=== PATIENT | female | born 1980 | race Caucasian/White ===

== ENCOUNTER 2016-11-20 20:41 | Emergency (ER) | payer BC ==
[~2016-11-20] VITALS: Ht 167.6 cm; Wt 64.6 kg
[~2016-11-20 20:41] MED LIST: LEVO.1 PO; ORTHTAB2 PO; SYNT75TA PO
[2016-11-20 20:50] VITALS: BP 111/86; PULSE 94; RESP 18; TEMP 98.8; O2SAT 100
[2016-11-20] MEDS ORDERED: LEVO.05 PO (20:59)
[2016-11-20] MEDS ORDERED: DEPO150I IM (20:59)
[2016-11-20] MEDS ORDERED: LEVO.075 PO (20:59)
--- NOTE | 2016-11-20 21:48 | PD ---
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 Patient states she fell on her knee 5 times yesterday after her hip popped out of place but it wasn't until falling on it today that she experienced significant pain. She does not remember how she fell but believes she may have fallen directly on her knee. She denies any other injuries. States since then she has had extreme pain in the left knee worse with any ambulation or range of motion. She has not taken anything for symptoms. Patient denies paresthesias. PFSH Past Medical History Medical other: Yes (Kaylen-Danlos syndrome ) Thyroid Disease: Yes (Hypo-) Tetanus Vaccination: < 5 Years Influenza Vaccination: No ?: Not LMP: On Depo Past Surgical History Gynecologic Surgery: Yes (Uteroid fibroids ) Tonsillectomy: Yes Other Surgery: Yes (R. HIP REPAIR, R. HAND, R. ROTATOR CUFF REPAIR ) Social History Alcohol Use: No Tobacco Use: Yes (1/2-1 PPD) Substance Use: No Allergies-Medications (Allergen,Severity, Reaction): Coded Allergies: Clindamycin (Verified Adverse Reaction, Severe, C-diff colitis , 11/20/16) Reported Meds & Prescriptions Reported Meds & Active Scripts Active Reported Depo-Provera Inj (Medroxyprogesterone Inj) 150 Mg/Ml Inj 150 Mg IM Q90D Synthroid (Levothyroxine Sodium) 75 Mcg Tab 75 Mcg PO EVERY OTHER DAY Synthroid (Levothyroxine Sodium) 50 Mcg Tab 50 Mcg PO EVERY OTHER DAY Review of Systems Except as stated in HPI: all other systems reviewed are Neg Physical Exam Narrative GENERAL: Well-nourished, well-developed female in no acute distress. Afebrile. Ambulatory. SKIN: Focused skin assessment warm/dry. Very mild ecchymosis of the left anterior knee. HEAD: Normocephalic. EYES: No scleral icterus. No injection or drainage. NECK: Supple, trachea midline. No JVD or lymphadenopathy. CARDIOVASCULAR: Regular rate and rhythm without murmurs, gallops, or rubs. RESPIRATORY: Breath sounds equal bilaterally. No accessory muscle use. EXTREMITY: Left knee is extremely tender to palpation especially over the kneecap. Patient has full extension and can flex to approximately 50. No obvious edema or effusion. 2+ dorsalis pedis pulse. Data Data Last Documented VS Vital Signs Date Time Temp Pulse Resp B/P Pulse Ox O2 Delivery O2 Flow Rate FiO2 11/20/16 20:50 98.8 94 18 111/86 100 Orders Knee, Complete (4vws) (11/20/16 ) [facility] Medical Decision Making Medical Screen Exam Complete: Yes Emergency Medical Condition: Yes Medical Record Reviewed: Yes Differential Diagnosis Sprain versus strain versus fracture versus contusion Narrative Course 36-year-old female presents to the emergency room for evaluation of left knee pain and swelling after falling on it 5 times yesterday and one time today. Patient has history of a kaylen danlos syndrome and her hip commonly pops out of place. She can pop it back into place but it caused her to fall. She denies paresthesias of the left lower extremity. It is neurovascularly intact with 2+ dorsalis pedis pulse. Patient can flex to approximately 50 she has full extension. Physical exam reveals no erythema, edema, obvious effusion. There is slight ecchymosis of the anterior knee. His extremity to palpation. X -ray shows no acute bony abnormality. Patient likely has contusion. She was placed in Tanvir wrap and told to follow up with primary care physician or return to the emergency room for worsening symptoms. She understands and agrees to plan. Diagnosis Primary Impression: Contusion of left knee Qualified Code: S80.02XA - Contusion of left knee, initial encounter Referrals: Primary Care Physician Patient Instructions: Contusion in Adults (ED), General Instructions Additional Instructions: Rest and drink plenty of fluids. Take ibuprofen with food as directed, as needed for pain. Apply ice to the affected area for 20 minutes at a time, as needed for pain and swelling. Follow-up with a primary care physician. Return to the emergency room for worsening symptoms. Disposition: 01 DISCHARGE HOME Condition: Stable Larisa Liu November 20, 2016 21:48
--- NOTE | 2016-11-20 22:04 | RADHPO ---
EXAM DATE/TIME: 11/20/2016 21:53 [facility] COMPARISON: No previous studies available for comparison. INDICATIONS : Dislocated left hip yesteday and fell; pain and bruising left knee. MEDICAL HISTORY : Kaylen-Danlos Syndrome SURGICAL HISTORY : None. ENCOUNTER: Initial ACUITY: 2 days PAIN SCORE: 9/10 LOCATION: Left knee FINDINGS: Four view examination of the left knee demonstrates no evidence of fracture or dislocation. Bony min eralization is normal. The articular surfaces are intact. The suprapatellar soft tissues have a nor mal configuration. CONCLUSION: No acute fracture. Anthony King MD on November 20, 2016 at 22:02 Board Certified Radiologist. This report was verified electronically.
== END 2016-11-20 22:15 | disposition home or self-care (01) ==
LOC: PHEFT 20:41
DX: S80.02XA Contusion of left knee, initial encounter (principal); Q79.6 Ehlers-Danlos syndromes; E03.9 Hypothyroidism, unspecified; Z79.899 Other long term (current) drug therapy; W19.XXXA Unspecified fall, initial encounter
CPT/HCPCS: 73564; 99283

== ENCOUNTER 2017-01-19 21:01 | Emergency (ER) | payer BC ==
[~2017-01-19] VITALS: Ht 167.6 cm; Wt 63.6 kg
[~2017-01-19 21:01] MED LIST changes: +DEPO150I IM; +LEVO.05 PO; +LEVO.075 PO; -LEVO.1 PO; -ORTHTAB2 PO; -SYNT75TA PO
[2017-01-19 21:03] VITALS: BP 122/83; PULSE 97; RESP 18; TEMP 97.9; O2SAT 98
[2017-01-19] MEDS ORDERED: ANALHC30T TOPICAL (22:17)
--- NOTE | 2017-01-19 22:23 | PD ---
HPI Chief Complaint: GI Complaint Time Seen by Provider: 22:14 Travel History International Travel<30 days: No Contact w/Intl Traveler<30days: No Traveled to known affect area: No History of Present Illness HPI 36-year-old female presents to the emergency department complaining of rectal pain. Patient with report of history of Kaylen-Danlos syndrome and rectal prolapse. Patient denies any rectal bleeding. Patient states that she has been followed by Dr. Cowart at [facility] who has written encouraged her to use stool softeners and fiber to her diet and try to reduce the rectal prolapse on her own as needed. Patient states this has been present since Sunday is painful and will not reduce and seems to be getting larger. Patient denies is currently on Depo-Provera shots and not sexually active. Patient does not report any abdominal pain nausea vomiting and no urinary symptoms. Patient denies any rectal bleeding. PFSH Past Medical History Narrative Medical Kaylen-Danlos syndrome, rectal prolapse, hypothyroidism; rotator cuff repair; tobacco use: Nursing notes reviewed Thyroid Disease: Yes (Hypo-) ?: Not LMP: DEPO Past Surgical History Gynecologic Surgery: Yes (Uteroid fibroids ) Tonsillectomy: Yes Other Surgery: Yes (R. HIP REPAIR, R. HAND, R. ROTATOR CUFF REPAIR ) Social History Alcohol Use: No Tobacco Use: Yes (12-1 PPD) Substance Use: No Allergies-Medications (Allergen,Severity, Reaction): Coded Allergies: Clindamycin (Verified Adverse Reaction, Severe, C-diff colitis , 01/19/17) Reported Meds & Prescriptions Reported Meds & Active Scripts Active Reported Depo-Provera Inj (Medroxyprogesterone Inj) 150 Mg/Ml Inj 150 Mg IM Q90D Synthroid (Levothyroxine Sodium) 75 Mcg Tab 75 Mcg PO EVERY OTHER DAY Synthroid (Levothyroxine Sodium) 50 Mcg Tab 50 Mcg PO EVERY OTHER DAY Review of Systems Except as stated in HPI: all other systems reviewed are Neg Physical Exam Narrative GENERAL: Well-developed well-nourished female in no acute distress no respiratory distress SKIN: Warm and dry. HEAD: Normocephalic. EYES: No scleral icterus. No injection or drainage. NECK: Supple, trachea midline. No JVD or lymphadenopathy. CARDIOVASCULAR: Regular rate and rhythm without murmurs, gallops, or rubs. RESPIRATORY: Breath sounds equal bilaterally. No accessory muscle use. GASTROINTESTINAL: Abdomen soft, non-tender, nondistended. Rectal exam: No fissure, no ecchymosis, no rectal prolapse, small prolapsed hemorrhoid readily reducible. Rectal vault no mass nontender no blood on exam glove unable to remove any stool that is just at tip of exam glove finger. Data Data Last Documented VS Vital Signs Date Time Temp Pulse Resp B/P Pulse Ox O2 Delivery O2 Flow Rate FiO2 01/19/17 21:03 97.9 97 18 122/83 98 MDM Medical Decision Making Medical Screen Exam Complete: Yes Emergency Medical Condition: Yes Medical Record Reviewed: Yes Differential Diagnosis Hemorrhoids, prolapsed hemorrhoid, thrombosed hemorrhoid, rectal prolapse Narrative Course Patient with readily reducible non-thrombosed hemorrhoid no evidence for rectal prolapse; patient will be given prescription for Analpram and encouraged to follow-up with colorectal surgeon Diagnosis Primary Impression: Hemorrhoid prolapse Referrals: Colon Rectal Specialist call for appointment Local colorectal surgeons include Dr Cassidy Mcgregor, Dr Davis, Dr Hutchinson; call person Dr Cassidy Mcgregor Patient Instructions: General Instructions Additional Instructions: Apply Analpram topically 4 times daily to decrease swelling discomfort and itching Frequent sitz baths as needed Add MiraLAX to bowel regimen Add fiber to dietary intake Increase fluid hydration Follow-up with colorectal surgeon as needed Med/Other Pt SpecificInfo: Prescription(s) given Scripts Hydrocortisone-Pramoxine Topical (Analpram Hc Topical)2.5-1% Cream1 Applic TOPICAL Q6HR PRN (ITCHING) #1 TUBE Prov:Danielle Christensen MD 01/19/17 Disposition: 01 DISCHARGE HOME Condition: Stable Danielle Christensen MD Jan 19, 2017 22:23
[2017-01-19 22:26] VITALS: BP 125/75
== END 2017-01-19 22:26 | disposition home or self-care (01) ==
LOC: PHED 21:01
DX: K64.8 Other hemorrhoids (principal); E03.9 Hypothyroidism, unspecified; Q79.6 Ehlers-Danlos syndromes; K62.3 Rectal prolapse; F17.210 Nicotine dependence, cigarettes, uncomplicated
CPT/HCPCS: 99284

== ENCOUNTER 2017-02-18 17:10 | Emergency (ER) | payer BC ==
[~2017-02-18] VITALS: Ht 167.6 cm; Wt 64.0 kg
[~2017-02-18 17:10] MED LIST changes: +ANALHC30T TOPICAL
[2017-02-18 17:14] VITALS: BP 122/63; PULSE 90; RESP 16; TEMP 98.3; O2SAT 100
[2017-02-18] MEDS ORDERED: HYDR-4107 PO (17:26)
--- NOTE | 2017-02-18 18:00 | PD ---
HPI Chief Complaint: Musculoskeletal Complaint Time Seen by Provider: 17:45 Travel History International Travel<30 days: No Contact w/Intl Traveler<30days: No Traveled to known affect area: No History of Present Illness HPI 36-year-old female presents to the emergency room for evaluation of bilateral distal finger paresthesias that started suddenly about 2 hours ago. Symptoms aren't off 10 fingers. She states they have to worsen the thumbs. They occur from the tips of the fingers down to about the middle phalanx. Denies significant pain. Patient states she was not doing anything when they started. She has associated left-sided neck pain. She denies history of alcohol abuse , diabetes, or excessive use of her hands. Denies chronic medical conditions or daily medications. PFSH Past Medical History Autoimmune Disease: Yes (Kaylen-Danlos syndrome ) Diminished Hearing: No Genitourinary: Yes (fibroids removed) Immunizations Current: Yes Thyroid Disease: Yes (Hypo-) Tetanus Vaccination: < 5 Years Influenza Vaccination: No ?: Not LMP: DEPO Past Surgical History Gynecologic Surgery: Yes (Uteroid fibroids ) Tonsillectomy: Yes Other Surgery: Yes (R. HIP REPAIR, R. HAND, R. ROTATOR CUFF REPAIR ) Social History Alcohol Use: No Tobacco Use: Yes (1/2-1 PPD) Substance Use: No Allergies-Medications (Allergen,Severity, Reaction): Coded Allergies: Clindamycin (Verified Adverse Reaction, Severe, C-diff colitis , 02/18/17) Reported Meds & Prescriptions Reported Meds & Active Scripts Active Reported Hydrocodone-Acetaminophen 5-300 Mg Tab 1 Tab PO Q4H PRN Depo-Provera Inj (Medroxyprogesterone Inj) 150 Mg/Ml Inj 150 Mg IM Q90D Synthroid (Levothyroxine Sodium) 75 Mcg Tab 75 Mcg PO EVERY OTHER DAY Synthroid (Levothyroxine Sodium) 50 Mcg Tab 50 Mcg PO EVERY OTHER DAY Review of Systems Except as stated in HPI: all other systems reviewed are Neg Physical Exam Narrative GENERAL: Well-nourished, well-developed female in no acute distress. Afebrile. Ambulatory. SKIN: Focused skin assessment warm/dry. Less than 2 second capillary refill distally in bilateral hands. HEAD: Normocephalic. EYES: No scleral icterus. No injection or drainage. NECK: Supple, trachea midline. No JVD or lymphadenopathy. CARDIOVASCULAR: Regular rate and rhythm without murmurs, gallops, or rubs. RESPIRATORY: Breath sounds equal bilaterally. No accessory muscle use. EXTREMITY: Bilateral hands nontender to palpation. Full range of motion in all joints. No joint swelling/injury. Normal opposition of thumb. Distal extremity neurovascularly intact. Patient has mildly decreased sensation in the distal phalanges. Data Data Last Documented VS Vital Signs Date Time Temp Pulse Resp B/P Pulse Ox O2 Delivery O2 Flow Rate FiO2 02/18/17 17:14 98.3 90 16 122/63 100 MDM Medical Decision Making Medical Screen Exam Complete: Yes Emergency Medical Condition: Yes Medical Record Reviewed: Yes Differential Diagnosis Peripheral neuropathy, peripheral vascular disease, carpal tunnel, vitamin deficiency, diabetes Narrative Course 36-year-old healthy female presents to the emergency room for evaluation of numbness and tingling in the bilateral fingertips that started just prior to arrival. No history of diabetes, HIV, peripheral vascular disease, or alcoholism. Physical exam is unremarkable. Patient has full range of motion of bilateral upper extremities. Less than 2 second capillary refill distally. When poked with a sharp needle she flinched 1 of 3 times. I suspect B12 vitamin deficiency. I spoke to my attending physician, Dr. Owens, who recommends follow-up with her primary care physician for outpatient workup or referral to neurologist. Told to return to the emergency home for worsening symptoms. She understands and agrees to plan. Diagnosis Primary Impression: Peripheral neuropathy Qualified Code: G62.9 - Peripheral polyneuropathy Referrals: Primary Care Physician Patient Instructions: General Instructions, Peripheral Neuropathy (ED) Additional Instructions: Rest and drink plenty of fluids. Follow-up with a primary care physician for outpatient testing and referral to neurologist if symptoms persist. Return to the emergency room for worsening symptoms. Disposition: DISCHARGE HOME Condition: Stable Larisa Liu Feb 18, 2017 18:00
== END 2017-02-18 18:08 | disposition home or self-care (01) ==
LOC: PHEFT 17:10
DX: G62.9 Polyneuropathy, unspecified (principal); M54.2 Cervicalgia; E07.9 Disorder of thyroid, unspecified; F17.200 Nicotine dependence, unspecified, uncomplicated; Z86.2 Personal history of diseases of the blood and blood-forming organs and certain disorders involving the immune mechanism
CPT/HCPCS: 99281

== ENCOUNTER 2017-04-28 20:10 | Observation (INO) | payer SELFPAY ==
[~2017-04-28 20:10] MED LIST changes: -ANALHC30T TOPICAL; +HYDR-4107 PO
[2017-04-28 20:12] VITALS: BP 114/71; PULSE 99; RESP 15; TEMP 98.2; O2SAT 97
[2017-04-28] MEDS ORDERED: MORPHINE SULFATE 4 MG/ML INJ IV PUSH ONE (20:45)
[2017-04-28] MEDS ORDERED: ONDANSETRON HCL 4 MG/2 ML VIAL IV PUSH ONE (20:45)
[2017-04-28] MEDS ORDERED: SODIUM CHLOR 0.9% 1000 ML INJ 1,000 ML IV SCH (20:45)
[2017-04-28] MEDS ORDERED: KETOROLAC TROMETHAMINE 30 MG/ML (IVP) VIAL IV PUSH ONE (20:45)
[2017-04-28 20:51] VITALS: BP 126/76; PULSE 109; RESP 18; O2SAT 97
[2017-04-28] MEDS ORDERED: CEPH-460 PO (20:51)
[2017-04-28 21:04] LABS: AUTOMATED NEUTROPHIL # 10.2 TH/MM3 (1.8-7.7); BASOPHIL # 0.1 TH/MM3 (0-0.2); BASOPHIL % 0.6 % (0.0-2.0); EOSINOPHIL # 0.5 TH/MM3 (0-0.4); EOSINOPHIL % 3.6 % (0.0-4.0); HEMATOCRIT 35.4 % (35.0-46.0); HEMO FLAGS DIFF FINAL; LYMPH % 17.2 % (9.0-44.0); LYMPHOCYTE # 2.4 TH/MM3 (1.0-4.8); MEAN CELL VOLUME 84.8 FL (80.0-100.0); MEAN CORPUSCULAR HEMOGLOBIN 28.1 PG (27.0-34.0); MEAN CORPUSCULAR HGB CONC 33.2 % (32.0-36.0); MONO % 4.7 % (0.0-8.0); NEUT % 73.9 % (16.0-70.0); PLATELET COUNT 263 TH/MM3 (150-450); RED BLOOD COUNT 4.18 MIL/MM3 (4.00-5.30); RED CELL DISTRIBUTION WIDTH 14.6 % (11.6-17.2); WHITE BLOOD COUNT 13.8 TH/MM3 (4.0-11.0)
[2017-04-28 21:15] LABS: BLOOD, URINE SMALL (NEG); COMMENT (UR) CULTURE INDICATED; CULTURE IF INDICATED CULTURE INDICATED; GLUCOSE,URINE NEG (NEG); KETONE, URINE NEG (NEG); NITRITE,URINE POS (NEG); PH, URINE 5.5 (5.0-8.5)
--- NOTE | 2017-04-28 21:15 | PD ---
HPI Chief Complaint: Complaint Time Seen by Provider: 20:29 Travel History International Travel<30 days: No Contact w/Intl Traveler<30days: No Traveled to known affect area: No History of Present Illness HPI 36-year-old female that presents to the ED for evaluation of possible UTI. Per patient she's had urinary like symptoms since the beginning of the month. Per patient she has dysuria, polyuria as well as urinary incontinence and back pain. Per patient she's been seen not too different urgent cares as well as [facility]. Last time she was seen her for hospital she had imaging and labs that were sutured unremarkable workup for possible UTI. She has taken Cipro, Macrobid, Keflex and amoxicillin. Patient just started on the Keflex and amoxicillin on Sunday. Patient denies any chest pain or shortness of breath. She states that she's had high fevers of 104. She states the incontinence has been ongoing since the start of the symptoms but it seems to becoming worse and worse. She states that her father was recently admitted and had to have a tube to drain his kidney. She denies any kidney history. She does have a history of chronic pain and takes pain medication as well as chronic anxiety. She denies any history of IV drug abuse. She's been taking her pain medication as well as OTC meds with minimal relief. She also takes Azo at this time. Pain per patient is 10 out of 10 on the back. She denies any numbness, tilling, weakness. She has any bowel movement issues. No vaginal discharge. PFSH Past Medical History Autoimmune Disease: Yes (Kaylen-Danlos syndrome ) Diminished Hearing: No Genitourinary: Yes (fibroids removed) Immunizations Current: Yes Thyroid Disease: Yes (Hypo-) Tetanus Vaccination: < 5 Years Influenza Vaccination: No ?: Not Past Surgical History Gynecologic Surgery: Yes (Uteroid fibroids ) Tonsillectomy: Yes Other Surgery: Yes (R. HIP REPAIR, R. HAND, R. ROTATOR CUFF REPAIR ) Social History Alcohol Use: No Tobacco Use: Yes (1/2-1 PPD) Substance Use: No Allergies-Medications (Allergen,Severity, Reaction): Coded Allergies: clindamycin (Unverified Adverse Reaction, Severe, C-diff colitis , 02/20/17 ) Reported Meds & Prescriptions Reported Meds & Active Scripts Active Reported Keflex (Cephalexin) 500 Mg Capsule 500 Mg PO TID Depo-Provera Inj (Medroxyprogesterone Inj) 150 Mg/Ml Inj 150 Mg IM Q90D Synthroid (Levothyroxine Sodium) 75 Mcg Tab 75 Mcg PO EVERY OTHER DAY Synthroid (Levothyroxine Sodium) 50 Mcg Tab 50 Mcg PO EVERY OTHER DAY Review of Systems Except as stated in HPI: all other systems reviewed are Neg Physical Exam Narrative GENERAL: SKIN: Warm and dry. HEAD: Atraumatic. Normocephalic. EYES: Pupils equal and round. No scleral icterus. No injection or drainage. ENT: No nasal bleeding or discharge. Mucous membranes pink and moist. Tongue is midline. No uvula deviation. NECK: Trachea midline. No JVD. CARDIOVASCULAR: Regular rate and rhythm. No murmurs, S3, S4. RESPIRATORY: No accessory muscle use. Clear to auscultation. Breath sounds equal bilaterally. GASTROINTESTINAL: Abdomen soft, non-tender, nondistended. Hepatic and splenic margins not palpable. MUSCULOSKELETAL: Extremities without clubbing, cyanosis, or edema. No obvious deformities. Full range of motion of the upper and lower extremities bilaterally. Appears to be neurovascularly intact in the upper and lower extremities. Sensation intact. 2+ pulses bilaterally. No tenderness to palpation in the musculature of the lower back. No obvious lumbar, thoracic, cervical spine deformity or tenderness. NEUROLOGICAL: Awake and alert. No obvious cranial nerve deficits. Motor grossly within normal limits. Five out of 5 muscle strength in the arms and legs. Normal speech. PSYCHIATRIC: Appropriate mood and affect; insight and judgment normal. Data Data Last Documented VS Vital Signs Date Time Temp Pulse Resp B/P (MAP) Pulse Ox O2 Delivery O2 Flow Rate FiO2 04/28/17 20:51 109 18 126/76 (93) 97 Room Air 04/28/17 20:12 98.2 Orders Orders Complete Blood Count With Diff (04/28/17 20:31) Basic Metabolic Panel (Bmp) (04/28/17 20:31) Urinalysis - C+S If Indicated (04/28/17 20:31) Magnesium (Mg) (04/28/17 20:31) Ed Urine Pregnancytest Poc (04/28/17 20:31) Lactic Acid (04/28/17 20:31) Mri L Spine W&W/O Contrast (04/28/17 ) Ct Abd/Pel W/O Iv Contrast (04/28/17 ) Ketorolac Inj (Toradol Inj) (04/28/17 20:45) Morphine Inj (Morphine Inj) (04/28/17 20:45) Ondansetron Inj (Zofran Inj) (04/28/17 20:45) Sodium Chlor 0.9% 1000 Ml Inj (Ns 1000 M (04/28/17 20:45) Urine Culture (04/28/17 20:30) Blood Culture (04/28/17 21:20) Gadodiamide Pf Inj (Omniscan Pf Inj) (04/28/17 22:00) Piperacil-Tazo 3.375 Gm Premix (Zosyn 3. (04/28/17 23:00) Admit Order (Ed Use Only) (04/28/17 23:02) Labs Laboratory Tests Test 04/28/17 20:30 04/28/17 20:40 Urine Color DARK-BROWN Urine Turbidity CLEAR Urine pH 5.5 Urine Specific [place] 1.012 Urine Protein NEG mg/dL Urine Glucose (UA) NEG mg/dL Urine Ketones NEG mg/dL Urine Occult Blood SMALL Urine Nitrite POS Urine Bilirubin NEG Urine Urobilinogen 2.0 MG/DL Urine Leukocyte Esterase NEG Urine RBC 7 /hpf Urine WBC 1 /hpf Microscopic Urinalysis Comment CULTURE INDICATED White Blood Count 13.8 TH/MM3 Red Blood Count 4.18 MIL/MM3 Hemoglobin 11.8 GM/DL Hematocrit 35.4 % Mean Corpuscular Volume 84.8 FL Mean Corpuscular Hemoglobin 28.1 PG Mean Corpuscular Hemoglobin Concent 33.2 % Red Cell Distribution Width 14.6 % Platelet Count 263 TH/MM3 Mean Platelet Volume 7.3 FL Neutrophils (%) (Auto) 73.9 % Lymphocytes (%) (Auto) 17.2 % Monocytes (%) (Auto) 4.7 % Eosinophils (%) (Auto) 3.6 % Basophils (%) (Auto) 0.6 % Neutrophils # (Auto) 10.2 TH/MM3 Lymphocytes # (Auto) 2.4 TH/MM3 Monocytes # (Auto) 0.6 TH/MM3 Eosinophils # (Auto) 0.5 TH/MM3 Basophils # (Auto) 0.1 TH/MM3 CBC Comment DIFF FINAL Differential Comment Blood Urea Nitrogen 11 MG/DL Creatinine 0.63 MG/DL Random Glucose 73 MG/DL Calcium Level 8.8 MG/DL Magnesium Level 2.1 MG/DL Sodium Level 140 MEQ/L Potassium Level 3.5 MEQ/L Chloride Level 107 MEQ/L Carbon Dioxide Level 24.9 MEQ/L Anion Gap 8 MEQ/L Estimat Glomerular Filtration Rate 108 ML/MIN Lactic Acid Level 1.2 mmol/L MDM Medical Decision Making Medical Screen Exam Complete: Yes Emergency Medical Condition: Yes Medical Record Reviewed: Yes Interpretation(s) CBC & BMP Diagram 04/28/17 20:40 Calcium Level 8.8, Magnesium Level 2.1 Last Impressions Lumbar Spine MRI 04/28/17 0000 Signed Impressions: Service Date/Time: Friday, April 28, 2017 21:41 - CONCLUSION: 1. At L4-5 there is a small annular tear and disc protrusion without canal or foraminal stenosis. Remainder of lumbar spine within normal limits for age. Normal alignment. Conus medullaris is intact. No abnormal enhancement. James Frazier MD Abdomen/Pelvis CT 04/28/17 0000 Signed Impressions: Service Date/Time: Friday, April 28, 2017 21:13 - CONCLUSION: 1. No acute findings. Negative for renal calculi, obstructive uropathy or evidence for inflammatory changes in the abdomen or pelvis. 2. Mild constipation. Trace free fluid in the pelvis. James Frazier MD UA shows nitrates, blood, RBCs lactic acid WNL Differential Diagnosis UTI versus polynephritis versus fellow patient treatment versus urinary incontinence versus neurological deficit versus abscess of the spine Narrative Course 36-year-old female that presents to the ED for evaluation of urinary symptoms. Patient was properly examined and was found to have signs and symptoms fit and appears to be urinary infection. There is some concern for neurological deficits as patient complains of worsening incontinence with inability to fall her urine which is new for her since starting with the symptoms. She denies any IV drug abuse but she does have some tenderness to palpation on the back. There is concern for infection. This time I recommend labs and imaging. MRI was ordered as well to rule out any sign of abscess or infection to the back. Patient was started on IV pain medications and fluids. Labs and imaging showed infection and possible UTI. MRIs and imaging were unremarkable other than for mild constipation. Case was discussed with my attending Dr. Christensen who evaluated the patient with me and recommends admission for FOR further evaluation and treatment of her symptoms. She still somewhat incontinent what appears to be neurovascularly intact. MRI again was negative for abscess or neurological deficit. My attending Dr. Christensen agrees with this plan. This was discussed with the patient who is in agreement with plan. Patient does meet sepsis criteria by having to elevated heart rates about 90 as well as elevated white blood cell count and infectious source. Residents were paged and they agreed to admission. Sepsis Criteria SIRS Criteria (2 or more): Heart rate over 90, WBC > 52867, < 4000 or > 10% bands Sepsis Criteria (SIRS+source): Infect source susp/known Criteria Outcome: Meets sepsis criteria Diagnosis Primary Impression: UTI (urinary tract infection) Qualified Codes: N30.01 - Acute cystitis with hematuria Additional Impressions: Urinary incontinence in female Constipation Qualified Codes: K59.00 - Constipation, unspecified Sepsis Qualified Codes: A41.9 - Sepsis, unspecified organism Admitting Information Admitting Physician Requests: Admit Agustin Linder Apr 28, 2017 21:14
[2017-04-28 21:16] LABS: URINE COLOR DARK-BROWN (YELLW/STRAW)
[2017-04-28 21:21] LABS: BICARBONATE 24.9 MEQ/L (21.0-32.0); MAGNESIUM 2.1 MG/DL (1.5-2.5); POTASSIUM 3.5 MEQ/L (3.5-5.1)
[2017-04-28] MEDS ORDERED: GADODIAMIDE PF 287 MG/ML 10 ML VIAL (for RAD MRI) IVCONTRAST ONE (22:00)
--- NOTE | 2017-04-28 22:01 | RADRPT ---
EXAM DATE/TIME: 04/28/2017 21:13 [facility] COMPARISON: No previous studies available for comparison. INDICATIONS : Right flank pain; possible urinary tract infection. ORAL CONTRAST: No oral contrast ingested. RADIATION DOSE: 5.57 CTDIvol (mGy) MEDICAL HISTORY : None SURGICAL HISTORY : None. ENCOUNTER: Initial ACUITY: 2 days PAIN SCALE: 8/10 LOCATION: Right flank TECHNIQUE: Volumetric scanning of the abdomen and pelvis was performed. Using automated exposure control and ad justment of the mA and/or kV according to patient size, radiation dose was kept as low as reasonably achievable to obtain optimal diagnostic quality images. DICOM format image data is available electro nically for review and comparison. FINDINGS: Visualized lung bases are clear. No acute findings in the liver, spleen, adrenals, kidneys or pancrea s. There is mild constipation. Small amount free fluid in the pelvis. No free air. No acute bony abnormalities. CONCLUSION: 1. No acute findings. Negative for renal calculi, obstructive uropathy or evidence for inflammatory c hanges in the abdomen or pelvis. 2. Mild constipation. Trace free fluid in the pelvis. James Frazier MD on April 28, 2017 at 21:57 Board Certified Radiologist. This report was verified electronically.
--- NOTE | 2017-04-28 22:38 | RADRPT ---
EXAM DATE/TIME: 04/28/2017 21:41 [place] COMPARISON: No previous studies available for comparison. INDICATIONS : Pain. CONTRAST: 10 cc Omniscan (gadodiamide) IV MEDICAL HISTORY : Kaylen-danlos syndrome. SURGICAL HISTORY : Orthopedic. ENCOUNTER: Initial ACUITY: 1 day PAIN SCORE: 3/10 LOCATION: [facility] TECHNIQUE: Multiplanar multisequence MRI of the lumbar spine was performed with and without contrast. FINDINGS: The most caudal appearing lumbar vertebra is numbered as L5. VERTEBRAE: Homogeneous signal. Normal alignment. CONUS: Normal level and configuration. POST CONTRAST: No abnormal areas of contrast enhancement are seen. T12-L1: The thecal sac has a normal diameter. No evidence of disc bulge or protrusion. The neural foramina are patent bilaterally. L1-L2: The thecal sac has a normal diameter. No evidence of disc bulge or protrusion. The neural foramina are patent bilaterally. L2-L3: The thecal sac has a normal diameter. No evidence of disc bulge or protrusion. The neural foramina are patent bilaterally. L3-L4: The thecal sac has a normal diameter. No evidence of disc bulge or protrusion. The neural foramina are patent bilaterally. L4-L5: There is a small annular tear and mild disc protrusion. The canal of foraminal stenosis. L5-S1: The thecal sac has a normal diameter. No evidence of disc bulge or protrusion. The neural foramina are patent bilaterally. CONCLUSION: 1. At L4-5 there is a small annular tear and disc protrusion without canal or foraminal stenosis. Rem ainder of lumbar spine within normal limits for age. Normal alignment. Conus medullaris is intact. No abnormal enhancement. James Frazier MD on April 28, 2017 at 22:34 Board Certified Radiologist. This report was verified electronically.
[2017-04-28] MEDS ORDERED: PIPERACIL-TAZO 3.375 GM PREMIX 50 ML IV ONE (23:00)
--- NOTE | 2017-04-28 23:12 | HHI.HP ---
[facility] Service Family Medicine Primary Care Physician Manas Valenzuela D.O. 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 symptoms started on April 18. At onset of symptoms, patient reports an inability to urinate despite a full bladder. However since then, she has been experiencing incontinence. She states that bladder itself is painful. Patient started taking Cipro the following Sunday. On Sunday, she visited an urgent care clinic where she was diagnosed with a UTI and prescribed Macrobid as well as Pyridium. On Sunday, she called the same urgent care clinic because medication had provided no/little relief; medication was switched to Keflex. On Sunday, patient visited ED at [facility], where a urine analysis and CT of pelvis were performed; per patient, UA showed white blood cells and imaging was normal. She was discharged from ED and started on Bactrim. Patient never filled Bactrim prescription because she says that Bactrim has not worked for her in the past. Symptoms continued to worsen. Yesterday, patient reports temperature of 104 degrees F and dizziness. She continues with fevers and chills today. Patient denies increased urinary frequency or urgency. Patient denies burning sensation with urination. She experiences bladder pain with and after urination ; pain lasts for approximately 5 minutes. She describes pain as 10 out of 10, sharp and throbbing. Patient also reports low back pain bilaterally. She describes this pain as a 9/10, sharp, continuous pain that improves with walking. Patient denies abdominal pain but has had little appetite. Patient admits to nausea but denies vomiting. Patient denies diarrhea and constipation; last bowel movement was 2 days ago. Patient denies vaginal discharge. Patient has had recurrent UTIs but denies prior kidney infection. Of note, patient started receiving Depo shots in July 2016; last Depo shot was April 13, 2017. Patient has lost 60 pounds since July; weight loss is unintentional. Per patient, director of infection prevention started workup to investigate weight loss. Review of Systems Constitutional: COMPLAINS OF: Diaphoretic episodes (with fever), Fatigue, Fever (104 degrees F at home ), Weight loss (unintentional; 60 pounds since July), Chills, Dizziness, Change in appetite (loss of appetite ) Endocrine: COMPLAINS OF: Abnorml menstrual pattern (no menstrual periods since July) Eyes: DENIES: Blurred vision, Eye pain, Vision loss, Double Vision Ears, nose, mouth, throat: DENIES: Hearing loss, Nasal discharge, Throat pain, Ear Pain, Running Nose, Sinus Pain Respiratory: COMPLAINS OF: Cough (started today ), DENIES: Wheezing, Sputum production, Shortness of breath Cardiovascular: DENIES: Chest pain, Palpitations Gastrointestinal: COMPLAINS OF: Abdominal pain (low, center), Nausea, DENIES: Black stools, Bloody stools, Constipation, Diarrhea, Vomiting Genitourinary: COMPLAINS OF: Abnormal vaginal bleeding (no menstrual periods since July), Urinary incontinence (repeated episodes), Dysuria (bladder pain with urination), DENIES: Urinary frequency, Urgency, Hematuria, Vaginal discharge Musculoskeletal: COMPLAINS OF: Muscle aches (chronic), Back pain (bilaterally) Integumentary: DENIES: Abnormal pigmentation, Rash Hematologic/lymphatic: COMPLAINS OF: Bruising (Easily ) Neurologic: COMPLAINS OF: Tremor (baseline), DENIES: Headache, Seizures Psychiatric: COMPLAINS OF: Anxiety, DENIES: Confusion, Depression Other For further details see HPI Past Family Social History Past Medical History Kaylen-Danlos syndrome - diagnosed 7 years ago Uterine fibroids x multiple Hypothyroidism Peripheral neuropathy - right lower extremity Pelvic floor dysfunction Past Surgical History Tonsillectomy - 2004 Right rotator cuff repair - 2004 Right hip repair - torn ligaments - January 2010 Right hand - torn ligaments - multiple - October 2011 and June 2012 "Fluid taking out of spine" - 2013 Uterine fibroids removed - 2016; all but one fibroid removed Reported Medications Reported Meds & Active Scripts Active Reported Keflex (Cephalexin) 500 Mg Capsule 500 Mg PO TID Pyridium (Phenazopyridine) 200 Mg Tab 200 Mg PO TID. Depo-Provera Inj (Medroxyprogesterone Inj) 150 Mg/Ml Inj 150 Mg IM Q90D Synthroid (Levothyroxine Sodium) 75 Mcg Tab 75 Mcg PO EVERY OTHER DAY - even days Synthroid (Levothyroxine Sodium) 50 Mcg Tab 50 Mcg PO EVERY OTHER DAY - odd days Allergies: Coded Allergies: clindamycin (Unverified Adverse Reaction, Severe, C-diff colitis , ) Family History Dad - kidney "stents" and "tube" placed this year- creatine high; kidney stone Sister - Bipolar disorder Social History Lives with boyfriend. She states that she has no family or friends in town. Alcohol: Denies Tobacco: 1/2 to 1 pack per day Drugs: Denies Physical Exam Vital Signs Vital Signs Date Time Temp Pulse Resp B/P (MAP) Pulse Ox O2 Delivery O2 Flow Rate FiO2 04/28/17 20:51 109 18 126/76 (93) 97 Room Air 04/28/17 20:12 98.2 99 15 114/71 (85) 97 Room Air Physical Exam GENERAL: This is a well-developed but thin patient, in some distress. SKIN: Warm and diaphoretic. HEAD: Atraumatic. Normocephalic. EYES: Extraocular motions grossly intact. No scleral icterus. No injection or drainage. ENT: Nose without bleeding, purulent drainage or septal hematoma. Mucous membranes moist. Airway patent. NECK: Trachea midline. No JVD. CARDIOVASCULAR: Regular rate and rhythm without murmurs, gallops, or rubs. RESPIRATORY: Scattered wheezes heard on auscultation. Breath sounds equal bilaterally. No wheezes, rales, or rhonchi. GASTROINTESTINAL: Abdomen soft, nondistended. Tender over periumbilical area and lower abdomen. No hepato-splenomegaly, or palpable masses. Some guarding. MUSCULOSKELETAL: Extremities without clubbing, cyanosis, or edema. No joint tenderness, effusion, or edema noted. No calf tenderness. NEUROLOGICAL: Awake and alert. Cranial nerves II through XII intact. Motor and sensory grossly within normal limits. Five out of 5 muscle strength in all muscle groups. Normal speech. PSYCHIATRIC: Patient tearful and anxious. She insists on private telephone conversation outside hospital. Patient also requests permission to go home to sweet pickle maker clothing and toiletries. Laboratory Laboratory Tests Test 04/28/17 20:30 04/28/17 20:40 Urine Color DARK-BROWN Urine Turbidity CLEAR Urine pH 5.5 Urine Specific [place] 1.012 Urine Protein NEG Urine Glucose (UA) NEG Urine Ketones NEG Urine Occult Blood SMALL Urine Nitrite POS Urine Bilirubin NEG Urine Urobilinogen 2.0 Urine Leukocyte Esterase NEG Urine RBC 7 Urine WBC 1 Microscopic Urinalysis Comment CULTURE INDICATED White Blood Count 13.8 Red Blood Count 4.18 Hemoglobin 11.8 Hematocrit 35.4 Mean Corpuscular Volume 84.8 Mean Corpuscular Hemoglobin 28.1 Mean Corpuscular Hemoglobin Concent 33.2 Red Cell Distribution Width 14.6 Platelet Count 263 Mean Platelet Volume 7.3 Neutrophils (%) (Auto) 73.9 Lymphocytes (%) (Auto) 17.2 Monocytes (%) (Auto) 4.7 Eosinophils (%) (Auto) 3.6 Basophils (%) (Auto) 0.6 Neutrophils # (Auto) 10.2 Lymphocytes # (Auto) 2.4 Monocytes # (Auto) 0.6 Eosinophils # (Auto) 0.5 Basophils # (Auto) 0.1 CBC Comment DIFF FINAL Differential Comment Blood Urea Nitrogen 11 Creatinine 0.63 Random Glucose 73 Calcium Level 8.8 Magnesium Level 2.1 Sodium Level 140 Potassium Level 3.5 Chloride Level 107 Carbon Dioxide Level 24.9 Anion Gap 8 Estimat Glomerular Filtration Rate 108 Lactic Acid Level 1.2 Date/Time Source Procedure Growth Status 04/28/17 21:35 Blood Peripheral Aerobic Blood Culture Pending Received 04/28/17 21:35 Blood Peripheral Anaerobic Blood Culture Pending Received 04/28/17 20:30 Urine Clean Catch Urine Culture Pending Received Result Diagram: 04/28/17203904/28/172039 Imaging Last Impressions Lumbar Spine MRI 04/28/17 0000 Signed Impressions: Service Date/Time: Friday, April 28, 2017 21:41 - CONCLUSION: 1. At L4-5 there is a small annular tear and disc protrusion without canal or foraminal stenosis. Remainder of lumbar spine within normal limits for age. Normal alignment. Conus medullaris is intact. No abnormal enhancement. James Frazier MD Abdomen/Pelvis CT 04/28/17 0000 Signed Impressions: Service Date/Time: Friday, April 28, 2017 21:13 - CONCLUSION: 1. No acute findings. Negative for renal calculi, obstructive uropathy or evidence for inflammatory changes in the abdomen or pelvis. 2. Mild constipation. Trace free fluid in the pelvis. James Frazier MD Septic Shock Reassessment Heart: Other (tachycardic) Lungs: Clear Skin: Warm, Moist Caprini VTE Risk Assessment Caprini VTE Risk Assessment: No/Low Risk (score <= 1) Caprini Risk Assessment Model Point Value = 1 Point Value = 2 Point Value = 3 Point Value = 5 Age 41-60 Minor surgery BMI > 25 kg/m2 Swollen legs Varicose veins or History of unexplained or recurrent spontaneous Oral contraceptives or hormone replacement Sepsis (< 1 month) Serious lung disease, including pneumonia (< 1 month) Abnormal pulmonary function Acute myocardial infarction Congestive heart failure (< 1 month) History of inflammatory bowel disease Medical patient at bed rest Age 61-74 Arthroscopic surgery Major open surgery (> 45 min) Laparoscopic surgery (> 45 min) Malignancy Confined to bed (> 72 hours) Immobilizing plaster cast Central venous access Age >= 75 History of VTE Family history of VTE Factor V Leiden Prothrombin [id number] Lupus anticoagulant Anticardiolipin antibodies Elevated serum homocysteine Heparin-induced thrombocytopenia Other congenital or acquired thrombophilia Stroke (< 1 month) Elective arthroplasty Hip, pelvis, or leg fracture Acute spinal cord injury (< 1 month) Prophylaxis Regimen Total Risk Factor Score Risk Level Prophylaxis Regimen 0-1 Low Early ambulation 2 Moderate Order ONE of the following: *Sequential Compression Device (SCD) *Heparin 5000 units SQ BID 3-4 Higher Order ONE of the following medications: *Heparin 5000 units SQ TID *Enoxaparin/Lovenox 40 mg SQ daily (WT < 150 kg, CrCl > 30 mL/min) *Enoxaparin/Lovenox 30 mg SQ daily (WT < 150 kg, CrCl > 10-29 mL/min) *Enoxaparin/Lovenox 30 mg SQ BID (WT < 150 kg, CrCl > 30 mL/min) AND/OR *Sequential Compression Device (SCD) 5 or more Highest Order ONE of the following medications: *Heparin 5000 units SQ TID (Preferred with Epidurals) *Enoxaparin/Lovenox 40 mg SQ daily (WT < 150 kg, CrCl > 30 mL/min) *Enoxaparin/Lovenox 30 mg SQ daily (WT < 150 kg, CrCl > 10-29 mL/min) *Enoxaparin/Lovenox 30 mg SQ BID (WT < 150 kg, CrCl > 30 mL/min) AND *Sequential Compression Device (SCD) Assessment and Plan Assessment and Plan 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 Patient meets sepsis criteria. Admitted to family medicine team for observation, management and further workup of symptoms. Patient left AMA following administration of NS fluid bolus 1 and Zosyn dose 1. Patient expressed need to go home to "get things." She was urged to stay for management of sepsis and further evaluation of symptoms. Risks of leaving AMA were extensively discussed with patient. Code Status Full code Discussed Condition With Dr. Yamilex Mcgregor Problem List: (1) Sepsis ICD Codes: A41.9 - Sepsis, unspecified organism Status: Acute Plan: In ED, sepsis criteria met: * Heart rate 109 H * WBC 13.8H * Source of infection: UTI In ED, patient received NS fluid bolus x1 and Zosyn 1. Patient left AMA immediately after dose of Zosyn was administered. Plan if patient returns: * Admit to observation. * Administer additional NS fluid bolus, followed by NS at or above maintenance. * Administer Zosyn 3.375mg IV q6hr. Adjust based on culture and sensitivities. * Order blood culture * Repeat CBC in a.m. * Plan for further workup: * Kidney/bladder ultrasound * Bladder scan (2) UTI (urinary tract infection) ICD Codes: N39.0 - Urinary tract infection, site not specified Status: Acute Plan: UA positive for occult blood, nitrite, RBCs. Culture indicated. See plan for Sepsis. (3) Urinary incontinence in female ICD Codes: R32 - Unspecified urinary incontinence Status: Acute Plan: No neurological deficits identified on exam. Likely related to UTI. See plan for Sepsis. (4) Constipation ICD Codes: K59.00 - Constipation, unspecified Status: Chronic Plan: Constipation noted on abdomen/pelvis CT. May contribute to pain experienced by patient. Patient left AMA prior to receiving medication to alleviate constipation. (5) Fluid, electrolytes, nutrition and prophylaxis Plan: Fluid: * Patient received NS fluid bolus 1 in ED. * Patient left AMA prior to administration of additional fluids. Electrolytes: * Monitor and replete as necessary. Diet: * Regular diet, Prophylaxis: * SCDs. Problem Qualifiers (1) Sepsis: Qualified Codes: A41.9 - Sepsis, unspecified organism (2) UTI (urinary tract infection): Qualified Codes: N30.01 - Acute cystitis with hematuria (3) Constipation: Qualified Codes: K59.00 - Constipation, unspecified LaBell,Blossom MD R1 Apr 28, 2017 23:12
[2017-04-28] MEDS ORDERED: SODIUM CHLORIDE 0.9% FLUSH 10 ML FLUSH IV FLUSH PRN (23:15)
[2017-04-28] MEDS ORDERED: SODIUM CHLORIDE 0.9% FLUSH 10 ML FLUSH IV FLUSH SCH (23:15)
--- NOTE | 2017-04-29 01:47 | PD.AMA ---
Against Medical Advice Note Discharge Disposition: Against Medical Advice Pt Condition on Discharge: Stable AMA Statement Patient Jossy Oakes has decided to leave the hospital against medical advice. This patient has the capacity to refuse care and understands the risks of leaving, including permanent disability and/or , and has had an opportunity to ask questions about her condition. The patient has been informed that she may return for care at any time for ED re-evaluation. Yamilex Mcgregor MD R2 Apr 29, 2017 01:47
[2017-04-29] MEDS ORDERED: PHEN0.4T PO ×2 (06:56→07:03)
[2017-04-29] MEDS ORDERED: OXYC30TA PO (07:00)
[2017-04-29] MEDS ORDERED: ALPR1TAB3 PO (07:00)
== END 2017-04-29 00:38 | disposition left against medical advice (07) ==
LOC: NEPC 20:10 → NEDA 23:04
PROVIDERS: ADMIT Family Medicine; ATTEND Family Medicine
DX: N30.01 Acute cystitis with hematuria (principal); A41.9 Sepsis, unspecified organism; E03.9 Hypothyroidism, unspecified; K59.00 Constipation, unspecified; Q79.6 Ehlers-Danlos syndromes; Z72.0 Tobacco use
CPT/HCPCS: 72158; 74176; 80048; 81001; 83605; 83735; 84703; 85025; 87040; 87086; 96361; 96374; 96375; 99285; A9579; G0378; J1885; J2270; J2405; J2543; J7030

== ENCOUNTER 2017-04-29 03:38 | Observation (INO) | payer SELFPAY ==
[~2017-04-29] VITALS: Ht 167.6 cm; Wt 60.0 kg
[2017-04-29] VITALS (7 sets, daily range): BP systolic 91–117; BP diastolic 51–71; PULSE 71–105; RESP 16–20; TEMP 96.9–100; O2SAT 93–100
[~2017-04-29 03:38] MED LIST changes: +CEPH-460 PO; -HYDR-4107 PO
[2017-04-29] MEDS ORDERED: SODIUM CHLOR 0.9% 1000 ML INJ 1,000 ML IV ONE ×2 (05:58→08:00)
[2017-04-29] MEDS ORDERED: PIPERACIL-TAZO 3.375 GM PREMIX 50 ML IV ONE (06:00)
[2017-04-29] MEDS ORDERED: SODIUM CHLORIDE 0.9% FLUSH 10 ML FLUSH IVF PRN (06:00)
--- NOTE | 2017-04-29 06:01 | PD ---
HPI Chief Complaint: Complaint Time Seen by Provider: 05:58 Travel History International Travel<30 days: No Contact w/Intl Traveler<30days: No Traveled to known affect area: No History of Present Illness HPI 36-year-old female presents to the emergency department for admission. Patient was seen earlier in the evening for complaint of suprapubic pressure and persistent urinary tract infection after taking multiple outpatient oral antibiotics without success. Patient had extensive workup and had been admitted from the emergency department to the medical service and after admission patient stated that she had to leave signed out AGAINST MEDICAL ADVICE states that she would return. Patient is returning at this time. Patient states she has had fever and chills. Patient denies any other complaints at this time. PFSH Past Medical History Narrative Medical Kaylen Danlos syndrome hypothyroidism recurrent UTI; nursing notes reviewed Autoimmune Disease: Yes (Kaylen-Danlos syndrome ) Diminished Hearing: No Genitourinary: Yes (fibroids removed) Immunizations Current: Yes Thyroid Disease: Yes (Hypo-) ?: Not LMP: IRREG Past Surgical History Gynecologic Surgery: Yes (Uteroid fibroids ) Tonsillectomy: Yes Other Surgery: Yes (R. HIP REPAIR, R. HAND, R. ROTATOR CUFF REPAIR ) Social History Alcohol Use: Yes (RARE) Tobacco Use: Yes (1/2-1 PPD) Substance Use: No Allergies-Medications (Allergen,Severity, Reaction): Coded Allergies: clindamycin (Unverified Adverse Reaction, Severe, C-diff colitis , ) Reported Meds & Prescriptions Reported Meds & Active Scripts Active Pyridium (Phenazopyridine HCl) 100 Mg Tab 200 Mg PO TID PRN Oxycodone (Oxycodone HCl) 30 Mg Tab 30 Mg PO TID PRN Alprazolam 1 Mg Tab 1 Mg PO BID PRN Reported Keflex (Cephalexin) 500 Mg Capsule 500 Mg PO TID Depo-Provera Inj (Medroxyprogesterone Inj) 150 Mg/Ml Inj 150 Mg IM Q90D Synthroid (Levothyroxine Sodium) 75 Mcg Tab 75 Mcg PO EVERY OTHER DAY Synthroid (Levothyroxine Sodium) 50 Mcg Tab 50 Mcg PO EVERY OTHER DAY Review of Systems Except as stated in HPI: all other systems reviewed are Neg Physical Exam Narrative GENERAL: Well-developed well-nourished female in no acute distress no respiratory distress SKIN: Warm and dry. HEAD: Normocephalic. EYES: No scleral icterus. No injection or drainage. NECK: Supple, trachea midline. No JVD or lymphadenopathy. CARDIOVASCULAR: Regular rate and rhythm without murmurs, gallops, or rubs. RESPIRATORY: Breath sounds equal bilaterally. No accessory muscle use. GASTROINTESTINAL: Abdomen soft, suprapubic tenderness without guarding or rebound, nondistended. MUSCULOSKELETAL: No cyanosis, or edema. BACK: Nontender without obvious deformity. No CVA tenderness. Data Data Last Documented VS Vital Signs Date Time Temp Pulse Resp B/P (MAP) Pulse Ox O2 Delivery O2 Flow Rate FiO2 04/29/17 03:40 100.0 105 16 117/71 (86) 97 Room Air Orders Orders Complete Blood Count With Diff (04/29/17 05:58) Basic Metabolic Panel (Bmp) (04/29/17 05:58) Ecg Monitoring (04/29/17 05:58) Iv Access Insert/Monitor (04/29/17 05:58) Sodium Chloride 0.9% Flush (Ns Flush) (04/29/17 06:00) Sodium Chlor 0.9% 1000 Ml Inj (Ns 1000 M (04/29/17 05:58) Lactic Acid (04/29/17 05:58) Piperacil-Tazo 3.375 Gm Premix (Zosyn 3. (04/29/17 06:00) Admit Order (Ed Use Only) (04/29/17 ) Labs Laboratory Tests Test 04/29/17 06:16 White Blood Count 14.4 TH/MM3 Red Blood Count 3.69 MIL/MM3 Hemoglobin 10.3 GM/DL Hematocrit 31.2 % Mean Corpuscular Volume 84.6 FL Mean Corpuscular Hemoglobin 28.0 PG Mean Corpuscular Hemoglobin Concent 33.0 % Red Cell Distribution Width 14.6 % Platelet Count 247 TH/MM3 Mean Platelet Volume 7.5 FL Neutrophils (%) (Auto) 79.8 % Lymphocytes (%) (Auto) 11.5 % Monocytes (%) (Auto) 5.8 % Eosinophils (%) (Auto) 2.4 % Basophils (%) (Auto) 0.5 % Neutrophils # (Auto) 11.4 TH/MM3 Lymphocytes # (Auto) 1.7 TH/MM3 Monocytes # (Auto) 0.8 TH/MM3 Eosinophils # (Auto) 0.3 TH/MM3 Basophils # (Auto) 0.1 TH/MM3 CBC Comment DIFF FINAL Differential Comment Blood Urea Nitrogen 12 MG/DL Creatinine 0.67 MG/DL Random Glucose 111 MG/DL Calcium Level 8.3 MG/DL Sodium Level 136 MEQ/L Potassium Level 3.9 MEQ/L Chloride Level 106 MEQ/L Carbon Dioxide Level 21.7 MEQ/L Anion Gap 8 MEQ/L Estimat Glomerular Filtration Rate 101 ML/MIN Lactic Acid Level 1.3 mmol/L MDM Medical Decision Making Medical Screen Exam Complete: Yes Emergency Medical Condition: Yes Medical Record Reviewed: Yes Interpretation(s) CBC & BMP Diagram 04/29/17 06:16 Calcium Level 8.3 L Vital Signs Date Time Temp Pulse Resp B/P (MAP) Pulse Ox O2 Delivery O2 Flow Rate FiO2 04/29/17 03:40 100.0 105 16 117/71 (86) 97 Room Air Lactic acid:1.3 within normal range Differential Diagnosis UTI failed outpatient therapy sepsis Narrative Course Patient is just left the emergency department a few hours ago and had extensive evaluation and workup; IV access obtained CBC and basic metabolic panel is lactic acid specimens collected but no further workup repeated as has just finished extensive workup including CT abdomen and pelvis an MRI of the lumbar spine. Patient's case discussed with prior admitting physician Dr. Mcgregor requests patient again to be readmitted to their service. Physician Communication Physician Communication call placed to Dr Mcgregor --accepted for admission to Dr Moe's service Diagnosis Primary Impression: UTI (urinary tract infection) Additional Impression: Failure of outpatient treatment Admitting Information Admitting Physician Requests: Admit Scripts Phenazopyridine (Pyridium) 100 Mg Tab 200 MG PO TID Y for DYSURIA, #20 TAB 0 Refills Prov: Blossom Jean MD R1 04/29/17 Oxycodone (Oxycodone) 30 Mg Tab 30 MG PO TID Y for PAIN, #90 TAB 0 Refills Prov: Blossom Jean MD R1 04/29/17 Alprazolam (Alprazolam) 1 Mg Tab 1 MG PO BID Y for ANXIETY, #60 TAB 0 Refills Prov: Blossom Jean MD R1 04/29/17 Danielle Christensen MD Apr 29, 2017 06:01
--- NOTE | 2017-04-29 06:42 | HHI.HP ---
[facility] Service Family Medicine Primary Care Physician Manas Valenzuela D.O. Admission Diagnosis UTI; failed outpatient therapy Diagnoses: International Travel<30 Days: No Contact w/Intl Traveler<30days: No Known Affected Area: No History of Present Illness Patient left AMA last night; returned within hours. Patient confirms narrative below; denies changes since discharge. 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 symptoms started on April 18. At onset of symptoms, patient reports an inability to urinate despite a full bladder. However since then, she has been experiencing incontinence. She states that bladder itself is painful. Patient started taking Cipro the following Sunday. On Sunday, she visited an urgent care clinic where she was diagnosed with a UTI and prescribed Macrobid as well as Pyridium. On Sunday, she called the same urgent care clinic because medication had provided no/little relief; medication was switched to Keflex. On Sunday, patient visited ED at [facility], where a urine analysis and CT of pelvis were performed; per patient, UA showed white blood cells and imaging was normal. She was discharged from ED and started on Bactrim. Patient never filled Bactrim prescription because she says that Bactrim has not worked for her in the past. Symptoms continued to worsen. Yesterday, patient reports temperature of 104 degrees F and dizziness. She continues with fevers and chills today. Patient denies increased urinary frequency or urgency. Patient denies burning sensation with urination. She experiences bladder pain with and after urination ; pain lasts for approximately 5 minutes. She describes pain as 10 out of 10, sharp and throbbing. Patient also reports low back pain bilaterally. She describes this pain as a 9/10, sharp, continuous pain that improves with walking. Patient denies abdominal pain but has had little appetite. Patient admits to nausea but denies vomiting. Patient denies diarrhea and constipation; last bowel movement was 2 days ago. Patient denies vaginal discharge. Patient has had recurrent UTIs but denies prior kidney infection. Of note, patient started receiving Depo shots in July 2016; last Depo shot was April 13, 2017. Patient has lost 60 pounds since July; weight loss is unintentional. 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 Review of Systems Other Constitutional: COMPLAINS OF: Diaphoretic episodes (with fever), Fatigue, Fever (104 degrees F at home ), Weight loss (unintentional; 60 pounds since July), Chills, Dizziness, Change in appetite (loss of appetite ) Endocrine: COMPLAINS OF: Abnorml menstrual pattern (no menstrual periods since July) Eyes: DENIES: Blurred vision, Eye pain, Vision loss, Double Vision Ears, nose, mouth, throat: DENIES: Hearing loss, Nasal discharge, Throat pain, Ear Pain, Running Nose, Sinus Pain Respiratory: COMPLAINS OF: Cough (started today ), DENIES: Wheezing, Sputum production, Shortness of breath Cardiovascular: DENIES: Chest pain, Palpitations Gastrointestinal: COMPLAINS OF: Abdominal pain (low, center), Nausea, DENIES: Black stools, Bloody stools, Constipation, Diarrhea, Vomiting Genitourinary: COMPLAINS OF: Abnormal vaginal bleeding (no menstrual periods since July), Urinary frequency, Urinary incontinence (repeated episodes), Dysuria (bladder pain with urination), DENIES: Urgency, Hematuria, Vaginal discharge Musculoskeletal: COMPLAINS OF: Muscle aches (chronic), Back pain (bilaterally) Integumentary: DENIES: Abnormal pigmentation, Rash Hematologic/lymphatic: COMPLAINS OF: Bruising (Easily ) Neurologic: COMPLAINS OF: Tremor (baseline), DENIES: Headache, Seizures Psychiatric: COMPLAINS OF: Anxiety, DENIES: Confusion, Depression Other For further details see HPI Past Family Social History Past Medical History Asthma - albuterol neb; last use: 2 years ago "Heart murmur" - slight Kaylen-Danlos syndrome - diagnosed 7 years ago Uterine fibroids x multiple Hypothyroidism Peripheral neuropathy - right lower extremity Pelvic floor dysfunction Past Surgical History Tonsillectomy - 2004 Right rotator cuff repair - 2004 Right hip repair - torn ligaments - January 2010 Right hand - torn ligaments - multiple - October 2011 and June 2012 "Fluid taking out of spine" - 2013 Uterine fibroids removed - 2016; all but one fibroid removed Reported Medications Reported Meds: Keflex (Cephalexin) 500 Mg Capsule 500 Mg PO TID Depo-Provera Inj (Medroxyprogesterone Inj) 150 Mg/Ml Inj 150 Mg IM Q90D Synthroid (Levothyroxine Sodium) 75 Mcg Tab 75 Mcg PO EVERY OTHER DAY - even days Synthroid (Levothyroxine Sodium) 50 Mcg Tab 50 Mcg PO EVERY OTHER DAY - odd days Pyridium (Phenazopyridine HCl) 100 Mg Tab 200 Mg PO TID PRN Oxycodone (Oxycodone HCl) 30 Mg Tab 30 Mg PO TID PRN Alprazolam 1 Mg Tab 1 Mg PO BID PRN Allergies: Coded Allergies: clindamycin (Unverified Adverse Reaction, Severe, C-diff colitis , ) Family History Dad - kidney "stents" and "tube" placed this year- creatine high; kidney stone Sister - Bipolar disorder Social History Lives with boyfriend. She states that she has no family or friends in town. Alcohol: Denies Tobacco: 1/2 to 1 pack per day Drugs: Denies Physical Exam Vital Signs Vital Signs Date Time Temp Pulse Resp B/P (MAP) Pulse Ox O2 Delivery O2 Flow Rate FiO2 04/29/17 03:40 100.0 105 16 117/71 (86) 97 Room Air Physical Exam GENERAL: This is a well-developed but thin patient, in some distress. SKIN: Warm and diaphoretic. HEAD: Atraumatic. Normocephalic. EYES: Extraocular motions grossly intact. No scleral icterus. No injection or drainage. ENT: Nose without bleeding, purulent drainage or septal hematoma. Mucous membranes moist. Airway patent. NECK: Trachea midline. No JVD. CARDIOVASCULAR: Regular rate and rhythm without murmurs, gallops, or rubs. RESPIRATORY: Diffuse wheezing heard on auscultation. Breath sounds equal bilaterally. No rales, or rhonchi. GASTROINTESTINAL: Abdomen soft, nondistended. Tender over periumbilical area and lower abdomen. No hepato-splenomegaly, or palpable masses. Some guarding. MUSCULOSKELETAL: Extremities without clubbing, cyanosis, or edema. No joint tenderness, effusion, or edema noted. No calf tenderness. NEUROLOGICAL: Awake and alert. Cranial nerves II through XII intact. Motor and sensory grossly within normal limits. Five out of 5 muscle strength in all muscle groups. Normal speech. PSYCHIATRIC: Patient tearful and anxious. Laboratory Laboratory Tests Test 04/29/17 06:16 White Blood Count 14.4 TH/MM3 Red Blood Count 3.69 MIL/MM3 Hemoglobin 10.3 GM/DL Hematocrit 31.2 % Mean Corpuscular Volume 84.6 FL Mean Corpuscular Hemoglobin 28.0 PG Mean Corpuscular Hemoglobin Concent 33.0 % Red Cell Distribution Width 14.6 % Platelet Count 247 TH/MM3 Mean Platelet Volume 7.5 FL Neutrophils (%) (Auto) 79.8 % Lymphocytes (%) (Auto) 11.5 % Monocytes (%) (Auto) 5.8 % Eosinophils (%) (Auto) 2.4 % Basophils (%) (Auto) 0.5 % Neutrophils # (Auto) 11.4 TH/MM3 Lymphocytes # (Auto) 1.7 TH/MM3 Monocytes # (Auto) 0.8 TH/MM3 Eosinophils # (Auto) 0.3 TH/MM3 Basophils # (Auto) 0.1 TH/MM3 CBC Comment DIFF FINAL Differential Comment Blood Urea Nitrogen 12 MG/DL Creatinine 0.67 MG/DL Random Glucose 111 MG/DL Calcium Level 8.3 MG/DL Sodium Level 136 MEQ/L Potassium Level 3.9 MEQ/L Chloride Level 106 MEQ/L Carbon Dioxide Level 21.7 MEQ/L Anion Gap 8 MEQ/L Estimat Glomerular Filtration Rate 101 ML/MIN Lactic Acid Level 1.3 mmol/L Imaging Last Impressions Lumbar Spine MRI 04/28/17 0000 Signed Impressions: Service Date/Time: Friday, April 28, 2017 21:41 - CONCLUSION: 1. At L4-5 there is a small annular tear and disc protrusion without canal or foraminal stenosis. Remainder of lumbar spine within normal limits for age. Normal alignment. Conus medullaris is intact. No abnormal enhancement. James Frazier MD Abdomen/Pelvis CT 04/28/17 0000 Signed Impressions: Service Date/Time: Friday, April 28, 2017 21:13 - CONCLUSION: 1. No acute findings. Negative for renal calculi, obstructive uropathy or evidence for inflammatory changes in the abdomen or pelvis. 2. Mild constipation. Trace free fluid in the pelvis. 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 Septic Shock Reassessment Heart: Other (tachycardic) Lungs: Other (diffuse wheezes) Skin: Warm, Moist Caprini VTE Risk Assessment Caprini VTE Risk Assessment: No/Low Risk (score <= 1) Caprini Risk Assessment Model Point Value = 1 Point Value = 2 Point Value = 3 Point Value = 5 Age 41-60 Minor surgery BMI > 25 kg/m2 Swollen legs Varicose veins or History of unexplained or recurrent spontaneous Oral contraceptives or hormone replacement Sepsis (< 1 month) Serious lung disease, including pneumonia (< 1 month) Abnormal pulmonary function Acute myocardial infarction Congestive heart failure (< 1 month) History of inflammatory bowel disease Medical patient at bed rest Age 61-74 Arthroscopic surgery Major open surgery (> 45 min) Laparoscopic surgery (> 45 min) Malignancy Confined to bed (> 72 hours) Immobilizing plaster cast Central venous access Age >= 75 History of VTE Family history of VTE Factor V Leiden Prothrombin [id number] Lupus anticoagulant Anticardiolipin antibodies Elevated serum homocysteine Heparin-induced thrombocytopenia Other congenital or acquired thrombophilia Stroke (< 1 month) Elective arthroplasty Hip, pelvis, or leg fracture Acute spinal cord injury (< 1 month) Prophylaxis Regimen Total Risk Factor Score Risk Level Prophylaxis Regimen 0-1 Low Early ambulation 2 Moderate Order ONE of the following: *Sequential Compression Device (SCD) *Heparin 5000 units SQ BID 3-4 Higher Order ONE of the following medications: *Heparin 5000 units SQ TID *Enoxaparin/Lovenox 40 mg SQ daily (WT < 150 kg, CrCl > 30 mL/min) *Enoxaparin/Lovenox 30 mg SQ daily (WT < 150 kg, CrCl > 10-29 mL/min) *Enoxaparin/Lovenox 30 mg SQ BID (WT < 150 kg, CrCl > 30 mL/min) AND/OR *Sequential Compression Device (SCD) 5 or more Highest Order ONE of the following medications: *Heparin 5000 units SQ TID (Preferred with Epidurals) *Enoxaparin/Lovenox 40 mg SQ daily (WT < 150 kg, CrCl > 30 mL/min) *Enoxaparin/Lovenox 30 mg SQ daily (WT < 150 kg, CrCl > 10-29 mL/min) *Enoxaparin/Lovenox 30 mg SQ BID (WT < 150 kg, CrCl > 30 mL/min) AND *Sequential Compression Device (SCD) Assessment and Plan Assessment and Plan 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 Patient meets sepsis criteria. Admitted to family medicine team for observation, management and further workup of symptoms. Code Status Full code Discussed Condition With Dr. Yamilex Mcgregor Problem List: (1) Sepsis ICD Codes: A41.9 - Sepsis, unspecified organism Status: Acute Plan: In ED, sepsis criteria met: * Heart rate 105 H * Temp 100.0F * WBC 14.4 H * Lactic Acid 1.3 * Source of infection: UTI//pyelonephritis In ED, during first visit, patient received NS fluid bolus x1 and Zosyn 1. In ED, during return visit, patient received NS fluid bolus 1 and Zosyn 1. * Admit to observation. * NS IV Bolus x2; Bag one 1,000 ml to run at 1,000mls/hr and bag two 800 ml to run at 1,000mls/hr. * Zosyn IV q6hr. Adjust based on culture and sensitivities. * Blood culture - pending. * Plan for further workup: * Bladder scan - postvoid residual. * Consider kidney/bladder ultrasound. (2) UTI (urinary tract infection) ICD Codes: N39.0 - Urinary tract infection, site not specified Status: Acute Plan: UA positive for occult blood, nitrite, RBCs. Culture indicated. Differential diagnosis: Complicated cystitis versus pyelonephritis. See plan for Sepsis. (3) Bladder pain ICD Codes: R39.89 - Other symptoms and signs involving the genitourinary system Plan: Differential diagnosis: UTI versus overactive bladder versus interstitial cystitis. See plan for Sepsis Pain management: * Toradol 10mg PO q6hr scheduled. * Oxycodone 30mg PO TID PRN pain 1-10. * Dilaudid 1mg IV q6hr PRN breakthrough pain. (4) Urinary incontinence in female ICD Codes: R32 - Unspecified urinary incontinence Status: Acute Plan: UA positive for occult blood, nitrite, RBCs. Culture indicated. See plan for Sepsis. (5) Constipation ICD Codes: K59.00 - Constipation, unspecified Status: Chronic Plan: Constipation noted on abdomen/pelvis CT. May contribute to pain experienced by patient. Offer constipation management. (6) Fluid, electrolytes, nutrition and prophylaxis Plan: Fluid: * Patient received NS fluid bolus 1 in ED. * NS IV Bolus x2; Bag one 1,000 ml to run at 1,000mls/hr and bag two 800 ml to run at 1,000mls/hr. Electrolytes: * Monitor and replete as necessary. Diet: * Regular diet, Prophylaxis: * SCDs. Blossom Jean MD R1 Apr 29, 2017 06:42
[2017-04-29] MEDS ORDERED: SODIUM CHLORIDE 0.9% FLUSH 10 ML FLUSH IV FLUSH PRN (06:45)
[2017-04-29 06:50] LABS: AUTOMATED NEUTROPHIL # 11.4 TH/MM3 (1.8-7.7); BASOPHIL # 0.1 TH/MM3 (0-0.2); BASOPHIL % 0.5 % (0.0-2.0); EOSINOPHIL # 0.3 TH/MM3 (0-0.4); EOSINOPHIL % 2.4 % (0.0-4.0); HEMATOCRIT 31.2 % (35.0-46.0); HEMOGLOBIN 10.3 GM/DL (11.6-15.3); LYMPH % 11.5 % (9.0-44.0); LYMPHOCYTE # 1.7 TH/MM3 (1.0-4.8); MEAN CELL VOLUME 84.6 FL (80.0-100.0); MEAN PLATELET VOLUME 7.5 FL (7.0-11.0); MONO % 5.8 % (0.0-8.0); MONOCYTE # 0.8 TH/MM3 (0-0.9); NEUT % 79.8 % (16.0-70.0); PLATELET COUNT 247 TH/MM3 (150-450); RED BLOOD COUNT 3.69 MIL/MM3 (4.00-5.30); RED CELL DISTRIBUTION WIDTH 14.6 % (11.6-17.2); WHITE BLOOD COUNT 14.4 TH/MM3 (4.0-11.0)
[2017-04-29] MEDS ORDERED: PHEN0.4T PO ×2 (06:56→07:03)
[2017-04-29] MEDS ORDERED: ALPR1TAB3 PO (07:00)
[2017-04-29] MEDS ORDERED: OXYC30TA PO (07:00)
[2017-04-29 07:11] LABS: BICARBONATE 21.7 MEQ/L (21.0-32.0); CALCIUM 8.3 MG/DL (8.5-10.1); CREATININE 0.67 MG/DL (0.50-1.00)
[2017-04-29] MEDS ORDERED: SODIUM CHLOR 0.9% 1000 ML INJ 800 ML IV ONE (08:00)
[2017-04-29] MEDS ORDERED: RESP: ALBUTEROL 2.5 MG/IPRATROPIUM 0.5 MG NEB (PRN) NEB (08:00)
[2017-04-29] MEDS: KETOROLAC TROMETHAMINE 10 MG TAB PO SCH ×4 (08:14→23:46)
[2017-04-29] MEDS: ALPRAZolam 1 MG TAB PO PRN ×2 (08:21→21:06)
[2017-04-29] MEDS: SODIUM CHLORIDE 0.9% FLUSH 10 ML FLUSH IV FLUSH SCH ×2 (08:30→21:07)
[2017-04-29] MEDS ORDERED: LEVOTHYROXINE SODIUM 75 MCG TAB PO SCH (09:00)
[2017-04-29] MEDS: NICOTINE 14 MG/24 HR PATCH T-DERMAL SCH (09:00)
[2017-04-29] MEDS: DOCUSATE SODIUM 50 MG/SENNA 8.6 MG TAB PO SCH ×2 (09:00→21:06)
[2017-04-29] MEDS ORDERED: HYDROmorphone HCL 2 MG TAB PO PRN (09:00)
--- NOTE | 2017-04-29 09:34 | HHI.FPPN ---
Subjective Remarks Patient reports improved pain in her bladder area. She is wondering what room she will be in and if it has a private bathroom. She denies any new dysuria, flank pain, fevers, chills, chest pain, or shortness of breath. She does not know if a urine culture was performed at the urgent care where she was initially evaluated for her UTI. (Aly Oakes MD, R3) Objective Vitals Vital Signs Date Time Temp Pulse Resp B/P (MAP) Pulse Ox O2 Delivery O2 Flow Rate FiO2 04/29/17 09:20 04/29/17 08:00 98.5 96 16 108/56 (73) 100 Room Air 04/29/17 03:40 100.0 105 16 117/71 (86) 97 Room Air (Aly Oakes MD, R3) Result Diagram: 04/29/17 0616 04/29/17 0616 Objective Remarks GEN: Appears very solmnolent, cannot keep her eyes open HEENT: Pupils constricted, sluggish reaction to light. CV: RRR RESP: CTAB, wheezing throughout. 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 Patient meets sepsis criteria. Admitted to family medicine team for observation, management and further workup of symptoms. (Aly Oakes MD, R3) Attending Attestation Table rounds were conducted about patients admission with Dr Sanchez, Dr Mcgregor, Dr Walker and Dr Jean, EMR reviewed, patient was then seen and examined, Agree with contents os note, See Orders.Patient admits to taking medications from home without permission. (Bertram Moe MD) Problem List: (1) Sepsis ICD Codes: A41.9 - Sepsis, unspecified organism Status: Acute Plan: On presentation met sepsis criteria. Source of infection: UTI// pyelonephritis. * Admit to observation. * Zosyn IV q6hr. Adjust based on culture and sensitivities. * Blood cultures x2. Will follow. * Plan for further workup: * Bladder scan - postvoid residual. * Consider kidney/bladder ultrasound. (2) UTI (urinary tract infection) ICD Codes: N39.0 - Urinary tract infection, site not specified Status: Acute Plan: UA positive for occult blood, nitrite, RBCs. Culture indicated. Differential diagnosis: Complicated cystitis versus pyelonephritis. Improving on exam today 04/29. See plan for Sepsis. (3) Bladder pain ICD Codes: R39.89 - Other symptoms and signs involving the genitourinary system Plan: Differential diagnosis: UTI versus overactive bladder versus bladder spasms-unknown origin. Patient appeared overly somnolent today. May suspect secondary medication/drug use/malingering behavior. See plan for Sepsis Pain management: * Toradol 10mg PO q6hr scheduled. * Oxycodone 30mg PO TID PRN pain 1-10. (4) Urinary incontinence in female ICD Codes: R32 - Unspecified urinary incontinence Status: Acute Plan: UA positive for occult blood, nitrites, RBCs. Culture indicated. See plan for Sepsis. (5) Constipation ICD Codes: K59.00 - Constipation, unspecified Status: Chronic Plan: Constipation noted on abdomen/pelvis CT. May contribute to pain experienced by patient. Pericolace BID. (6) Fluid, electrolytes, nutrition and prophylaxis Plan: Fluid: * NS 100 ml/hr Electrolytes: * Monitor and replete as necessary. Diet: * Regular diet, Prophylaxis: * SCDs SDW Dr. Moe, Dr. Cassidy Mcgregor, Dr. Walker (Aly Oakes MD, R3) Aly Oakes MD, R3 Apr 29, 2017 09:34 Bertram Moe MD Apr 30, 2017 18:44
[2017-04-29] MEDS: PHENAZOPYRIDINE HCL 200 MG TAB PO SCH ×3 (09:39→21:06)
[2017-04-29] MEDS ORDERED: ACETAMINOPHEN 325 MG TAB PO PRN (09:45)
[2017-04-29 10:57] LABS: BACTERIA, URINE RARE /hpf; BLOOD, URINE MOD (NEG); GLUCOSE,URINE NEG (NEG); KETONE, URINE NEG (NEG); MUCUS URINE FEW /lpf (OCC); NITRITE,URINE NEG (NEG); SQUAMOUS EPITHELIAL CELL URINE 17 /hpf (0-5); URINE COLOR DARK-YELLOW (YELLW/STRAW); URINE LEUKOCYTE ESTERASE LARGE (NEG)
[2017-04-29 10:58] LABS: BILIRUBIN, URINE NEG (NEG)
[2017-04-29] MEDS: PIPERACIL-TAZO 4.5 GM PREMIX 100 ML IV SCH ×3 (11:37→23:46)
[2017-04-29] MEDS: SODIUM CHLOR 0.9% 1000 ML INJ 1,000 ML IV SCH ×2 (11:38→19:00)
[2017-04-29] MEDS ORDERED: NALOXONE HCL 0.4 MG/ML AMP IV PUSH PRN (14:15)
[2017-04-29] MEDS: RESP: ALBUTEROL 2.5 MG/IPRATROPIUM 0.5 MG NEB (SCH) NEB ×2 (16:00→22:00)
[2017-04-29] MEDS: REMOVE OLD PATCH T-DERMAL SCH (21:00)
[2017-04-29] MEDS: ACETAMINOPHEN/HYDROcodone 325 MG/5 MG TAB PO PRN (21:07)
[2017-04-30] VITALS (8 sets, daily range): BP systolic 98–171; BP diastolic 57–84; PULSE 67–82; RESP 17–18; TEMP 97.1–99.2; O2SAT 88–98
[2017-04-30] MEDS: SODIUM CHLOR 0.9% 1000 ML INJ 1,000 ML IV SCH ×2 (00:59→12:12)
[2017-04-30] MEDS: RESP: ALBUTEROL 2.5 MG/IPRATROPIUM 0.5 MG NEB (SCH) NEB ×3 (03:37→21:09)
[2017-04-30] MEDS: PIPERACIL-TAZO 4.5 GM PREMIX 100 ML IV SCH ×3 (05:30→18:10)
[2017-04-30] MEDS: PHENAZOPYRIDINE HCL 200 MG TAB PO SCH ×3 (05:31→20:51)
[2017-04-30] MEDS: KETOROLAC TROMETHAMINE 10 MG TAB PO SCH ×3 (05:31→18:10)
[2017-04-30] MEDS: ACETAMINOPHEN/HYDROcodone 325 MG/5 MG TAB PO PRN ×3 (05:53→21:00)
[2017-04-30 07:24] LABS: AUTOMATED NEUTROPHIL # 4.1 TH/MM3 (1.8-7.7); BASOPHIL # 0.1 TH/MM3 (0-0.2); BASOPHIL % 0.8 % (0.0-2.0); EOSINOPHIL # 0.6 TH/MM3 (0-0.4); EOSINOPHIL % 6.8 % (0.0-4.0); HEMATOCRIT 32.5 % (35.0-46.0); HEMOGLOBIN 10.6 GM/DL (11.6-15.3); LYMPH % 37.2 % (9.0-44.0); MEAN CELL VOLUME 85.4 FL (80.0-100.0); MEAN CORPUSCULAR HEMOGLOBIN 27.9 PG (27.0-34.0); MEAN CORPUSCULAR HGB CONC 32.7 % (32.0-36.0); MEAN PLATELET VOLUME 7.7 FL (7.0-11.0); MONO % 4.7 % (0.0-8.0); MONOCYTE # 0.4 TH/MM3 (0-0.9); NEUT % 50.5 % (16.0-70.0); PLATELET COUNT 260 TH/MM3 (150-450); RED BLOOD COUNT 3.81 MIL/MM3 (4.00-5.30); RED CELL DISTRIBUTION WIDTH 14.5 % (11.6-17.2); WHITE BLOOD COUNT 8.1 TH/MM3 (4.0-11.0)
[2017-04-30 07:50] LABS: BICARBONATE 23.4 MEQ/L (21.0-32.0); CALCIUM 8.1 MG/DL (8.5-10.1); CREATININE 0.56 MG/DL (0.50-1.00)
[2017-04-30] MEDS: ALPRAZolam 1 MG TAB PO PRN ×2 (08:52→20:51)
[2017-04-30] MEDS: SODIUM CHLORIDE 0.9% FLUSH 10 ML FLUSH IV FLUSH SCH ×2 (08:52→20:51)
[2017-04-30] MEDS: DOCUSATE SODIUM 50 MG/SENNA 8.6 MG TAB PO SCH ×2 (08:53→20:51)
[2017-04-30] MEDS: NICOTINE 14 MG/24 HR PATCH T-DERMAL SCH (08:53)
[2017-04-30] MEDS ORDERED: LEVOTHYROXINE SODIUM 50 MCG TAB PO SCH (09:00)
--- NOTE | 2017-04-30 10:43 | HHI.FPPN ---
Subjective Remarks Patient states that she is doing okay this morning she is having some random cramping and increased urination. She states that she woke up last night coughing and choking. She receives a nebulizer treatment that made her feel better. As of right now no chest pain, no shortness of breath, no nausea or vomiting, no constipation or diarrhea, no fevers or chills. She was unhappy with the scheduling of her pain medications. She does not want to be woken up in the low the night to receive her medications. She requests that we readjust the scheduling. Objective Vitals Vital Signs Date Time Temp Pulse Resp B/P (MAP) Pulse Ox O2 Delivery O2 Flow Rate FiO2 04/30/17 09:09 92 04/30/17 08:00 99.0 82 18 125/58 (80) 88 04/30/17 06:05 92 04/30/17 00:33 99.2 73 18 98/57 (71) 92 04/29/17 21:34 98.5 79 18 109/66 (80) 93 04/29/17 20:05 95 21 04/29/17 16:00 98.4 78 19 103/51 (68) 96 04/29/17 12:00 98.2 71 20 94/56 (69) 96 I/O 04/29/17 04/29/17 04/29/17 04/30/17 04/30/17 04/30/17 07:00 15:00 23:00 07:00 15:00 23:00 Intake Total 3100 ml 850 ml 200 ml Output Total 600 ml Balance 3100 ml 250 ml 200 ml Intake Oral 750 ml IV Total 3100 ml 100 ml 200 ml Output Urine Total 600 ml Bladder Scan Volume Amount 8 ml # Bowel Movements 0 Result Diagram: 04/30/17 0559 04/30/17 0559 Objective Remarks GEN: Appears very solmnolent, cannot keep her eyes open HEENT: Pupils constricted, sluggish reaction to light. CV: RRR RESP: CTAB, wheezing throughout. 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 Patient meets sepsis criteria. Admitted to family medicine team for observation, management and further workup of symptoms. Problem List: (1) Sepsis ICD Codes: A41.9 - Sepsis, unspecified organism Status: Acute Plan: On presentation met sepsis criteria. Source of infection: UTI// pyelonephritis. Urine cx showing no growth in 24 hours. * Admit to observation. * Zosyn IV q6hr. Adjust based on culture and sensitivities. * Blood cultures x2. Will follow. NGTD * Plan for further workup: * Bladder scan - postvoid residual. Conducted on 04/30 showing 8ml of residual urine after voiding. * Consider kidney/bladder ultrasound. (2) UTI (urinary tract infection) ICD Codes: N39.0 - Urinary tract infection, site not specified Status: Acute Plan: UA positive for occult blood, nitrite, RBCs. Culture indicated. Differential diagnosis: Complicated cystitis versus pyelonephritis. Improving on exam today 04/29. See plan for Sepsis. (3) Bladder pain ICD Codes: R39.89 - Other symptoms and signs involving the genitourinary system Plan: Differential diagnosis: UTI versus overactive bladder versus bladder spasms-unknown origin. Patient appeared overly somnolent today. May suspect secondary medication/drug use/malingering behavior. See plan for Sepsis Pain management: * Toradol 10mg PO q6hr scheduled. * Oxycodone 30mg PO TID PRN pain 1-10. (4) Urinary incontinence in female ICD Codes: R32 - Unspecified urinary incontinence Status: Acute Plan: UA positive for occult blood, nitrites, RBCs. Culture indicated. See plan for Sepsis. (5) Constipation ICD Codes: K59.00 - Constipation, unspecified Status: Chronic Plan: Constipation noted on abdomen/pelvis CT. May contribute to pain experienced by patient. Pericolace BID. (6) Fluid, electrolytes, nutrition and prophylaxis Plan: Fluid: * NS 100 ml/hr Electrolytes: * Monitor and replete as necessary. Diet: * Regular diet, Prophylaxis: * SCDs SDW Dr. Moe, Dr. Cassidy Mcgregor, Sahra Hernandez MD R1 Apr 30, 2017 10:43
[2017-04-30] MEDS: REMOVE OLD PATCH T-DERMAL SCH (20:51)
[2017-05-01] MEDS: SODIUM CHLOR 0.9% 1000 ML INJ 1,000 ML IV SCH ×2 (00:05→09:11)
[2017-05-01] MEDS: PIPERACIL-TAZO 4.5 GM PREMIX 100 ML IV SCH ×2 (00:05→05:48)
[2017-05-01] MEDS: KETOROLAC TROMETHAMINE 10 MG TAB PO SCH ×2 (00:10→05:49)
[2017-05-01 01:15] VITALS: BP 132/64; PULSE 67; RESP 18; TEMP 98; O2SAT 92
[2017-05-01] MEDS: ACETAMINOPHEN/HYDROcodone 325 MG/5 MG TAB PO PRN ×2 (02:25→09:12)
[2017-05-01] MEDS: RESP: ALBUTEROL 2.5 MG/IPRATROPIUM 0.5 MG NEB (SCH) NEB ×2 (04:55→08:25)
[2017-05-01] MEDS: PHENAZOPYRIDINE HCL 200 MG TAB PO SCH (05:52)
[2017-05-01 07:31] VITALS: BP 120/70; PULSE 51; RESP 16; TEMP 98.5; O2SAT 93
[2017-05-01] MEDS ORDERED: LEVOTHYROXINE SODIUM 50 MCG TAB PO SCH (08:30)
[2017-05-01] MEDS: SODIUM CHLORIDE 0.9% FLUSH 10 ML FLUSH IV FLUSH SCH (09:10)
[2017-05-01] MEDS: DOCUSATE SODIUM 50 MG/SENNA 8.6 MG TAB PO SCH (09:10)
[2017-05-01] MEDS: NICOTINE 14 MG/24 HR PATCH T-DERMAL SCH (09:10)
[2017-05-01 09:13] LABS: BASOPHIL # 0.1 TH/MM3 (0-0.2); BASOPHIL % 0.9 % (0.0-2.0); EOSINOPHIL # 0.5 TH/MM3 (0-0.4); EOSINOPHIL % 6.4 % (0.0-4.0); HEMATOCRIT 29.4 % (35.0-46.0); HEMOGLOBIN 9.7 GM/DL (11.6-15.3); LYMPH % 39.9 % (9.0-44.0); LYMPHOCYTE # 3.4 TH/MM3 (1.0-4.8); MEAN CELL VOLUME 86.4 FL (80.0-100.0); MEAN CORPUSCULAR HEMOGLOBIN 28.6 PG (27.0-34.0); MEAN CORPUSCULAR HGB CONC 33.2 % (32.0-36.0); MEAN PLATELET VOLUME 7.8 FL (7.0-11.0); MONO % 5.3 % (0.0-8.0); MONOCYTE # 0.4 TH/MM3 (0-0.9); NEUT % 47.5 % (16.0-70.0); PLATELET COUNT 231 TH/MM3 (150-450); RED CELL DISTRIBUTION WIDTH 14.7 % (11.6-17.2); WHITE BLOOD COUNT 8.5 TH/MM3 (4.0-11.0)
[2017-05-01] MEDS ORDERED: MACR100C2 PO (09:32)
--- NOTE | 2017-05-01 09:33 | HHI.DCPOC ---
Discharge Care Plan Diagnosis: (1) UTI (urinary tract infection) (2) Bladder pain (3) Failure of outpatient treatment Goals to Promote Your Health * To prevent worsening of your condition and complications * To maintain your health at the optimal level Directions to Meet Your Goals Take your medications as prescribed Follow your dietary instruction Follow activity as directed Keep your appointments as scheduled Take your immunizations and boosters as scheduled If your symptoms worsen call your PCP, if no PCP go to Urgent Care Center or Emergency Room Smoking is Dangerous to Your Health. Avoid second hand smoke Call the 24-hour hour crisis hotline for domestic abuse at Sahra Walker MD R1 May 01, 2017 09:33
--- NOTE | 2017-05-01 09:33 | HHI.DCPOC ---
Discharge Care Plan Diagnosis: (1) UTI (urinary tract infection) (2) Bladder pain (3) Failure of outpatient treatment Goals to Promote Your Health * To prevent worsening of your condition and complications * To maintain your health at the optimal level Directions to Meet Your Goals Take your medications as prescribed Follow your dietary instruction Follow activity as directed Keep your appointments as scheduled Take your immunizations and boosters as scheduled If your symptoms worsen call your PCP, if no PCP go to Urgent Care Center or Emergency Room Smoking is Dangerous to Your Health. Avoid second hand smoke Call the 24-hour hour crisis hotline for domestic abuse at Sahra Walker MD R1 May 01, 2017 09:33
--- NOTE | 2017-05-01 09:33 | HHI.DCPOC ---
Discharge Care Plan Diagnosis: (1) UTI (urinary tract infection) (2) Bladder pain (3) Failure of outpatient treatment Goals to Promote Your Health * To prevent worsening of your condition and complications * To maintain your health at the optimal level Directions to Meet Your Goals Take your medications as prescribed Follow your dietary instruction Follow activity as directed Keep your appointments as scheduled Take your immunizations and boosters as scheduled If your symptoms worsen call your PCP, if no PCP go to Urgent Care Center or Emergency Room Smoking is Dangerous to Your Health. Avoid second hand smoke Call the 24-hour hour crisis hotline for domestic abuse at Sahra Walker MD R1 May 01, 2017 09:33
--- NOTE | 2017-05-01 10:00 | HHI.FPPN ---
Subjective Remarks Patient seen and examined this morning. She states that her pain with urination is a lot better. Is eager to go home. No chest pain, no SOB, no nausea/vomiting , no diarrhea/constipation. Objective Vitals Vital Signs Date Time Temp Pulse Resp B/P (MAP) Pulse Ox O2 Delivery O2 Flow Rate FiO2 05/01/17 07:31 98.5 51 16 120/70 (87) 93 05/01/17 01:15 98.0 67 18 132/64 (86) 92 04/30/17 20:23 97.1 69 17 124/70 (88) 97 04/30/17 16:00 97.8 68 17 171/84 (113) 93 04/30/17 15:44 98 21 04/30/17 12:00 98.8 67 17 154/81 (105) 91 I/O 04/30/17 04/30/17 04/30/17 05/01/17 05/01/17 05/01/17 07:00 15:00 23:00 07:00 15:00 23:00 Intake Total 200 ml 100 ml 1842 ml 780 ml 120 ml Balance 200 ml 100 ml 1842 ml 780 ml 120 ml Intake Oral 680 ml 780 ml 120 ml IV Total 200 ml 100 ml 1162 ml Bladder Scan Volume Amount 8 ml # Voids 3 4 # Bowel Movements 2 Result Diagram: 05/01/17 0530 04/30/17 0559 Objective Remarks GENERAL: Well-nourished, well-developed patient sitting in bed, in no acute distress. SKIN: Warm and dry. HEAD: Normocephalic. EYES: No scleral icterus. No injection or drainage. CARDIOVASCULAR: Regular rate and rhythm without murmurs, gallops, or rubs. RESPIRATORY: Breath sounds equal bilaterally. No accessory muscle use. GASTROINTESTINAL: Abdomen soft, nondistended, tenderness at epigastric region. EXTREMITIES: No cyanosis, or edema. NEUROLOGICAL: Awake, alert. Non-focal. 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 Patient meets sepsis criteria. Admitted to family medicine team for observation, management and further workup of symptoms. Discharge Planning home today Problem List: (1) Sepsis ICD Codes: A41.9 - Sepsis, unspecified organism Status: Acute Plan: On presentation met sepsis criteria. Source of infection: UTI// pyelonephritis. Urine cx showing no growth in 24 hours. * Admit to observation. * Zosyn IV q6hr. Adjust based on culture and sensitivities. * Blood cultures x2. Will follow. NGTD * Plan for further workup: * Bladder scan - postvoid residual. Conducted on 04/30 showing 8ml of residual urine after voiding. * Consider kidney/bladder ultrasound. (2) UTI (urinary tract infection) ICD Codes: N39.0 - Urinary tract infection, site not specified Status: Acute Plan: UA positive for occult blood, nitrite, RBCs. Culture indicated. Differential diagnosis: Complicated cystitis versus pyelonephritis. Improving on exam today 04/29. See plan for Sepsis. (3) Bladder pain ICD Codes: R39.89 - Other symptoms and signs involving the genitourinary system Plan: Differential diagnosis: UTI versus overactive bladder versus bladder spasms-unknown origin. Patient appeared overly somnolent today. May suspect secondary medication/drug use/malingering behavior. See plan for Sepsis Pain management: * Toradol 10mg PO q6hr scheduled. * Oxycodone 30mg PO TID PRN pain 1-10. (4) Urinary incontinence in female ICD Codes: R32 - Unspecified urinary incontinence Status: Acute Plan: UA positive for occult blood, nitrites, RBCs. Culture indicated. See plan for Sepsis. (5) Constipation ICD Codes: K59.00 - Constipation, unspecified Status: Chronic Plan: Constipation noted on abdomen/pelvis CT. May contribute to pain experienced by patient. Pericolace BID. (6) Fluid, electrolytes, nutrition and prophylaxis Plan: Fluid: * NS 100 ml/hr Electrolytes: * Monitor and replete as necessary. Diet: * Regular diet, Prophylaxis: * SCDs SDW Dr. Moe, Dr. Cassidy Mcgregor, Dr. Denise Walker,Sahra BLANK R1 May 01, 2017 10:00
--- NOTE | 2017-05-01 10:00 | HHI.DS ---
Discharge Summary Admission Date Apr 29, 2017 at 06:31 Discharge Date: May 01, 2017 Admitting Diagnosis UTI; failed outpatient therapy (1) Sepsis Plan: On presentation met sepsis criteria. Source of infection: UTI// pyelonephritis. Urine cx showing no growth in 24 hours. * Admit to observation. * Zosyn IV q6hr. Adjust based on culture and sensitivities. * Blood cultures x2. Will follow. NGTD * Plan for further workup: * Bladder scan - postvoid residual. Conducted on 04/30 showing 8ml of residual urine after voiding. * Consider kidney/bladder ultrasound. ICD Codes: A41.9 - Sepsis, unspecified organism Status: Acute (2) UTI (urinary tract infection) Plan: UA positive for occult blood, nitrite, RBCs. Culture indicated. Differential diagnosis: Complicated cystitis versus pyelonephritis. Improving on exam today 04/29. See plan for Sepsis. ICD Codes: N39.0 - Urinary tract infection, site not specified Status: Acute (3) Bladder pain Plan: Differential diagnosis: UTI versus overactive bladder versus bladder spasms-unknown origin. Patient appeared overly somnolent today. May suspect secondary medication/drug use/malingering behavior. See plan for Sepsis Pain management: * Toradol 10mg PO q6hr scheduled. * Oxycodone 30mg PO TID PRN pain 1-10. ICD Codes: R39.89 - Other symptoms and signs involving the genitourinary system (4) Urinary incontinence in female Plan: UA positive for occult blood, nitrites, RBCs. Culture indicated. See plan for Sepsis. ICD Codes: R32 - Unspecified urinary incontinence Status: Acute (5) Constipation Plan: Constipation noted on abdomen/pelvis CT. May contribute to pain experienced by patient. Pericolace BID. ICD Codes: K59.00 - Constipation, unspecified Status: Chronic (6) Fluid, electrolytes, nutrition and prophylaxis Plan: Fluid: * NS 100 ml/hr Electrolytes: * Monitor and replete as necessary. Diet: * Regular diet, Prophylaxis: * SCDs SDW Dr. Moe, Dr. Cassidy Mcgregor, Dr. Walker Brief History Patient left AMA last night; returned within hours. Patient confirms narrative below; denies changes since discharge. 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 symptoms started on April 18. At onset of symptoms, patient reports an inability to urinate despite a full bladder. However since then, she has been experiencing incontinence. She states that bladder itself is painful. Patient started taking Cipro the following Sunday. On Sunday, she visited an urgent care clinic where she was diagnosed with a UTI and prescribed Macrobid as well as Pyridium. On Sunday, she called the same urgent care clinic because medication had provided no/little relief; medication was switched to Keflex. On Sunday, patient visited ED at [facility], where a urine analysis and CT of pelvis were performed; per patient, UA showed white blood cells and imaging was normal. She was discharged from ED and started on Bactrim. Patient never filled Bactrim prescription because she says that Bactrim has not worked for her in the past. Symptoms continued to worsen. Yesterday, patient reports temperature of 104 degrees F and dizziness. She continues with fevers and chills today. Patient denies increased urinary frequency or urgency. Patient denies burning sensation with urination. She experiences bladder pain with and after urination ; pain lasts for approximately 5 minutes. She describes pain as 10 out of 10, sharp and throbbing. Patient also reports low back pain bilaterally. She describes this pain as a 9/10, sharp, continuous pain that improves with walking. Patient denies abdominal pain but has had little appetite. Patient admits to nausea but denies vomiting. Patient denies diarrhea and constipation; last bowel movement was 2 days ago. Patient denies vaginal discharge. Patient has had recurrent UTIs but denies prior kidney infection. Of note, patient started receiving Depo shots in July 2016; last Depo shot was April 13, 2017. Patient has lost 60 pounds since July; weight loss is unintentional. 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 CBC/BMP: 05/01/17 0530 04/30/17 0559 Significant Findings Laboratory Tests Test 04/29/17 06:16 04/29/17 10:30 04/30/17 05:59 05/01/17 05:30 White Blood Count 14.4 TH/MM3 (4.0-11.0) Red Blood Count 3.69 MIL/MM3 (4.00-5.30) 3.81 MIL/MM3 (4.00-5.30) 3.40 MIL/MM3 (4.00-5.30) Hemoglobin 10.3 GM/DL (11.6-15.3) 10.6 GM/DL (11.6-15.3) 9.7 GM/DL (11.6-15.3) Hematocrit 31.2 % (35.0-46.0) 32.5 % (35.0-46.0) 29.4 % (35.0-46.0) Neutrophils (%) (Auto) 79.8 % (16.0-70.0) Neutrophils # (Auto) 11.4 TH/MM3 (1.8-7.7) Random Glucose 111 MG/DL (74-106) Calcium Level 8.3 MG/DL (8.5-10.1) 8.1 MG/DL (8.5-10.1) Urine Color DARK-YELLOW (YELLW/STRAW) Urine Turbidity HAZY (CLEAR) Urine Occult Blood MOD (NEG) Urine Leukocyte Esterase LARGE (NEG) Urine RBC 14 /hpf (0-3) Urine WBC 22 /hpf (0-5) Urine Bacteria RARE /hpf (NONE) Urine Mucus FEW /lpf (OCC) Urine Opiates Screen POS (NEG) Urine Benzodiazepines Screen POS (NEG) Eosinophils (%) (Auto) 6.8 % (0.0-4.0) 6.4 % (0.0-4.0) Eosinophils # (Auto) 0.6 TH/MM3 (0-0.4) 0.5 TH/MM3 (0-0.4) Chloride Level 111 MEQ/L (98-107) PE at Discharge GEN: Appears very solmnolent, cannot keep her eyes open HEENT: Pupils constricted, sluggish reaction to light. CV: RRR RESP: CTAB, wheezing throughout. 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 Patient met sepsis criteria.She was admitted to the family medicine team for observation, management and further workup of symptoms. She was started on IV Zosyn. A bladder scan was conducted on 04/30 which showed 8mls of urine post residual volume. She was discharged on 05/01 in stable condition with Macrobid 100mgBID for 4 days. At the time of discharge urine cx had no growth for 24 hours. Pt Condition on Discharge: Stable Discharge Disposition: Discharge Home Discharge Instructions DIET: Follow Instructions for: As Tolerated, No Restrictions Speech Therapy-Diet Recommends: Regular Activities you can perform: Regular-No Restrictions Follow up Referrals: PCP Follow-up - 1 Week with Manas Valenzuela D.o. New Medications: Nitrofurantoin Monohydrate Macrocrystals (Macrobid) 100 Mg Cap 100 MG PO BID for Infection for 4 Days, #8 CAP 0 Refills Continued Medications: Alprazolam (Alprazolam) 1 Mg Tab 1 MG PO BID PRN for ANXIETY, #60 TAB 0 Refills Levothyroxine (Synthroid) 50 Mcg Tab 50 MCG PO EVERY OTHER DAY for Thyroid, #30 TAB 0 Refills Levothyroxine (Synthroid) 75 Mcg Tab 75 MCG PO EVERY OTHER DAY for Thyroid, #30 TAB 0 Refills Medroxyprogesterone Inj (Depo-Provera Inj) 150 Mg/Ml Inj 150 MG IM Q90D for Control, VIAL 0 Refills Oxycodone (Oxycodone) 30 Mg Tab 30 MG PO TID PRN for PAIN, #90 TAB 0 Refills Phenazopyridine (Pyridium) 100 Mg Tab 200 MG PO TID PRN for DYSURIA, #20 TAB 0 Refills Discontinued Medications: Cephalexin (Keflex) 500 Mg Capsule 500 MG PO TID for Infection, CAP 0 Refills Sahra Walker MD R1 May 01, 2017 10:00
[2017-05-01 10:17] LABS: BICARBONATE 21.9 MEQ/L (21.0-32.0); CALCIUM 7.9 MG/DL (8.5-10.1); CREATININE 0.55 MG/DL (0.50-1.00)
[2017-05-01 10:54] VITALS: BP 124/74; PULSE 52; RESP 14; TEMP 98.4; O2SAT 94
[2017-05-02] MEDS ORDERED: LEVOTHYROXINE SODIUM 75 MCG TAB PO SCH (06:00)
[2017-05-03] MEDS ORDERED: LEVOTHYROXINE SODIUM 50 MCG TAB PO SCH (06:00)
== END 2017-05-01 11:12 | disposition home or self-care (01) ==
LOC: NEPC 03:38 → INTOOBSV 06:31 → NEDA 06:31 → N07A 09:30
PROVIDERS: ADMIT Family Medicine; ATTEND Family Medicine
DX: A41.9 Sepsis, unspecified organism (principal); N39.0 Urinary tract infection, site not specified; R39.89 Other symptoms and signs involving the genitourinary system; R32 Unspecified urinary incontinence; K59.00 Constipation, unspecified; F41.9 Anxiety disorder, unspecified; E03.9 Hypothyroidism, unspecified; Q79.6 Ehlers-Danlos syndromes; J45.909 Unspecified asthma, uncomplicated; Z72.0 Tobacco use; Z87.440 Personal history of urinary (tract) infections
CPT/HCPCS: 80048; 80307; 81001; 83605; 84443; 85025; 87040; 87086; 94640; 94664; 96361; 96365; 96366; 96376; 97161; 99285; G0378; G8987; G8988; G8989; J2543; J7030